=== PATIENT | female | born 1995 | race Caucasian/White ===

== ENCOUNTER 2020-09-12 11:10 | Outpatient (REF) | payer MEDICAID, SELFPAY ==
[2020-09-12 12:45] LABS: COVID-19 Test Negative (Negative)
== END 2020-09-12 11:11 | disposition home or self-care (01) ==
LOC: HO.LAB 11:10
PROVIDERS: Visit Provider Internal Medicine
DX: Z20.822 Contact with and (suspected) exposure to COVID-19 (principal)
CPT/HCPCS: 36415; 87635; C9803

== ENCOUNTER 2021-01-16 08:52 | Outpatient (REF) | payer MEDICAID, SELFPAY ==
[2021-01-16 09:29] LABS: COVID-19 Test Negative (Negative)
== END 2021-01-16 08:53 | disposition home or self-care (01) ==
LOC: HO.LAB 08:52
PROVIDERS: PCP Nurse Practitioner Primary Care; Visit Provider Internal Medicine
DX: Z20.822 Contact with and (suspected) exposure to COVID-19 (principal)
CPT/HCPCS: 36415; 87635; C9803

== ENCOUNTER 2021-04-22 10:28 | Outpatient (REF) | payer MEDICAID, SELFPAY | END 2021-04-22 10:29 | disposition home or self-care (01) | LOC: HO.LAB 10:28 | PROVIDERS: Visit Provider Internal Medicine | DX: Z20.822 Contact with and (suspected) exposure to COVID-19 (principal) | CPT/HCPCS: C9803; U0003; U0005 ==

== ENCOUNTER 2021-04-23 14:45 | Emergency (ER) | payer MEDICAID, SELFPAY ==
--- NOTE | ~2021-04-23 | XR_ITS ---
EXAMINATION: XR CHEST CLINICAL INFORMATION: Cough COMPARISON: Chest x-ray on 01/29/2018 TECHNIQUE: Frontal view of the chest was obtained. FINDINGS: No significant abnormality is noted involving the heart, lungs, mediastinum, bony thorax or soft tissues. XR/XR chest 1V IMPRESSION: Unremarkable examination.
[2021-04-23 16:20] VITALS: BP 119/65; PULSE 105; RESP 20; TEMP 37; O2SAT 95; BMI 31.1
[2021-04-23 17:08] LABS: COVID-19 Test Negative (Negative)
[2021-04-23] MEDS: predniSONE 20 MG TABLET 60 MG PO (18:53)
[2021-04-23 19:00] VITALS: PULSE 105; O2SAT 95
[2021-04-23] MEDS: Albuterol/Iprat 2.5/0.5MG 3 ML AMPUL.NEB INHALE (19:00)
--- NOTE | 2021-04-23 19:06 | ED_ITS ---
HPI - URI/Sore Throat General Chief Complaint: Upper Respiratory Symptoms Stated Complaint: diff breathing, cough, lung pain Time Seen by Provider: 04/23/21 18:31 Source: patient Mode of arrival: ambulatory Limitations: no limitations History of Present Illness HPI Narrative: 25-year-old patient history of asthma presents to ED for coughing, wheezing, chest tightness and body aches. Patient states having green phlegm and coughing. Patient states she was exposed to a family member 3 days ago was positive for COVID. Family member called her yesterday and told her that they had COVID. Patient denies any coughing up blood, leg swelling, calf pain, or shortness of breath on exertion. Related Data Previous Rx's Medication Instructions Recorded benzonatate 100 mg capsule 100 mg PO TID PRN 5 Days #15 cap 04/23/21 prednisone 20 mg tablet 40 mg PO DAILY 5 Days #10 tab 04/23/21 Allergies Allergy/AdvReac Type Severity Reaction Status Date / Time glatiramer (copolymer 1) Allergy Unknown anaphylaxis Verified 04/23/21 16:20 [Copaxone] No Known Allergies Allergy Verified 04/23/21 16:20 [No Known Allergies*] pollen Allergy Unknown snnezing Uncoded 12/20/19 00:00 Review of Systems Review of Systems: Yes all other systems are reviewed and are negative Constitutional: Constitutional: Reports as per HPI, Reports no additional constitutional complaints and Reports body ache(s) Eyes: Eyes: Reports as per HPI and Reports no additional eye complaints ENT: Reports system reviewed and no additional complaints, except as documented and Reports as per HPI Cardiovascular: Cardiovascular: Reports as per HPI, Reports no additional cardiovascular complaints and Denies chest pain Respiratory: Respiratory: Reports as per HPI, Reports no additional respiratory complaints, Reports cough, Reports excessive phlegm production (Green) and Reports wheezing Gastrointestinal: Gastrointestinal: Reports as per HPI and Reports no additional gastrointestinal complaints Genitourinary: Genitourinary: Reports no additional female genitourinary complaints and Reports as per HPI Musculoskeletal: Musculoskeletal: Reports no additional musculoskeletal complaints and Reports as per HPI Neurologic: Reports system reviewed and no additional complaints, except as documented and Reports as per HPI Psychiatric: Psychiatric: Reports no additional psychiatric complaints and Reports as per HPI Allergic/Immunologic: Allergic/Immunologic: Reports wheezing PMFSH Social History Social History Advance Directives: No Advance Directives Information Provided: Yes Patient : No Physical Exam Vital Signs: Vital Signs: Last Vital Signs Temp 98.6 F 04/23/21 16:20 Pulse 105 H 04/23/21 19:00 Resp 20 04/23/21 16:20 BP 119/65 04/23/21 16:20 Pulse Ox 95 04/23/21 16:20 Body Mass Index 31.1 Const: General: cooperative, healthy appearing, comfortable, no acute distress, well developed, alert, awake and Physically active Orientation/consciousness: patient oriented x3 HENMT: Head: Yes normal to inspection, Yes No palpable skull fracture present, Yes normocephalic, Yes atraumatic, Yes abrasion, No Acrocyanosis present, No raccoon eyes and No scalp lesion Ears: hearing grossly normal bilaterally and external ears normal General nose exam: Normal external nose present and Normal nares present Face and sinus: Yes normal facial exam and Yes sinuses nontender Throat: Yes posterior oropharynx normal, Yes tonsils normal and Yes uvula midline Eyes: General: appearance normal, both eyes and all related structures Neck: Neck: Yes normal visual inspection, Yes full ROM, Yes no lymphadenopathy, Yes no meningeal signs, Yes trachea midline, Yes supple, No anterior neck swelling and No tender Chest: Chest palpation & inspection: normal inspection of the chest and normal palpation of entire chest wall Resp: Effort & Inspection: normal respiratory effort and able to speak in complete sentences Auscultation: wheezes (Diffuse) expiratory wheezes Cardio: Jugular venous distension: no JVD Heart sounds: S1 normal heart sound present and S2 normal heart sound present GI: Inspection: Yes normal to inspection and No abdominal wall ecchymosis Palpation (GI): Soft to palpation, not firm, nontender, no guarding and not rigid : General: Yes CVA tenderness and Yes no CVA tenderness Back/Spine/Pelvis: Back: no CVA tenderness, CVA tenderness and No back tenderness Skin: General skin exam: no rashes or lesions noted and elasticity normal Neuro: General: patient oriented x3, gait normal, no meningeal signs and CN's II-XI intact bilaterally Cranial nerves: Yes CN's II-XII intact bilaterally Extrem: Other: Bilateral Lower extremity negative for swelling, pitting edema, or calf tenderness. General: Yes normal to inspection and Yes full ROM Psych: Appearance: grossly normal, well kempt and not disheveled Course Course Course Narrative: COVID x-ray ordered. Reevaluation(s) Reevaluation #1: COVID swab x-ray negative. Patient informed although COVID swab was negative this may be a false negative due to her recently been exposed. Patient given albuterol treatments steroids and feels better. Lung sounds clear. Time: 19:13 MDM - URI/Sore Throat MDM Narrative Medical decision making narrative: URI. Asthma exacerbation Lab Data Labs: Lab Results 04/23/21 Range/Units 16:46 COVID-19 (CONI) Negative (Negative) COVID-19 Clin Com See Note Discharge Plan Discharge Clinical Impression: Upper respiratory infection, Asthma Patient Disposition: Home, Self-Care Instructions: Asthma (ED), Upper Respiratory Infection (ED) Additional Instructions: COVID swab and chest x-ray came back normal. Although your COVID soft came back negative, this may be a false negative due to you being recently exposed to COVID and now having symptoms. Will recommend retesting for COVID in 72 hours if symptoms does not improve. Will be given days off from work. Continue taking your albuterol inhaler as needed. He will be discharged on steroids and coughing medication. Return to ED immediately for shortness of breath, coughing up blood, calf pain, swelling of lower extremities, weakness, fever, chills, chest pain, or any other concerning symptoms. Please follow-up with primary care provider Prescriptions: New prednisone 20 mg tablet 40 mg PO DAILY 5 Days Qty: 10 RF: 0 benzonatate 100 mg capsule 100 mg PO TID PRN (Reason: cough) 5 Days Qty: 15 RF: 0 Stand Alone Forms: Work/School Release Interventions: ED Discharge Assessment Last Done: 04/23/21 19:32 Discharge Date/Time: 04/23/21 19:34 Print Language: Indonesian
== END 2021-04-23 19:34 | disposition home or self-care (01) ==
PROVIDERS: Emergency Provider Emergency Medicine; PCP Nurse Practitioner Primary Care
DX: J06.9 Acute upper respiratory infection, unspecified (principal); J45.909 Unspecified asthma, uncomplicated; Z20.822 Contact with and (suspected) exposure to COVID-19
CPT/HCPCS: 36415; 71045; 87635; 94640; 99283; 99284

== ENCOUNTER 2021-06-28 15:20 | Emergency (ER) | payer MEDICAID, SELFPAY ==
[2021-06-28 15:25] VITALS: BP 135/56; PULSE 77; RESP 18; TEMP 37.2; O2SAT 96; BMI 28.1
--- NOTE | 2021-06-28 16:04 | ED.FALL ---
HPI - Fall General Chief Complaint: Fall Stated Complaint: fell downstairs Time Seen by Provider: 06/28/21 15:45 History of Present Illness HPI Narrative: Patient complains of pain on her right ribs and her right hip and right upper leg when she went to go down 4 steps outside her building and slipped on the ice and slid down the stairs, no loss of consciousness no neck pain no numbness weakness or tingling no dazed no confused Related Data Previous Rx's Medication Instructions Recorded benzonatate 100 mg capsule 100 mg PO TID PRN 5 Days #15 cap 04/23/21 prednisone 20 mg tablet 40 mg PO DAILY 5 Days #10 tab 04/23/21 ibuprofen 600 mg tablet 600 mg PO Q6H PRN #20 tab 06/28/21 Allergies Allergy/AdvReac Type Severity Reaction Status Date / Time glatiramer (copolymer 1) Allergy Unknown anaphylaxis Verified 04/23/21 16:20 [Copaxone] No Known Allergies Allergy Verified 04/23/21 16:20 [No Known Allergies*] pollen Allergy Unknown snnezing Uncoded 12/20/19 00:00 Review of Systems Review of Systems: Positive for right rib right leg right hip pain after a fall Negatives are no headache no head injury no vision changes no fainting no feeling faint no numbness weakness or tingling no neck pain no shortness of breath no abdominal pain no other extremity pains Yes all other systems are reviewed and are negative [facility] Past Medical History Source: nursing notes reviewed Medical History (Updated 06/29/21 @ 00:02 by Background Dashannan) Multiple sclerosis Social History Social History Advance Directives: No Advance Directives Information Provided: No Patient : No Physical Exam Vital Signs: Vital Signs: Last Vital Signs Temp 98.9 F 06/28/21 15:25 Pulse 77 06/28/21 15:25 Resp 18 06/28/21 15:25 BP 135/56 L 06/28/21 15:25 Pulse Ox 96 06/28/21 15:25 BMI result Body Mass Index 28.1 General appearance no acute distress Head is normocephalic atraumatic Neck is supple and nontender Chest wall had right rib posterior and lateral tenderness, chest was clear to auscultation bilateral no respiratory distress, no ecchymosis on the chest wall Abdomen soft nontender The back there was right lower soft tissue tenderness as well as right mid back tenderness as well as posterior rib tenderness, no CVA tenderness no focal bony spinal tenderness Extremities are full range of motion x4 with equal range in both hips both knees both ankles and she ambulates with no limp Neuro no focal motor or sensory deficit Course Course Course Narrative: Right rib x-ray and chest x-ray did not reveal any pneumothorax or any obvious rib fractures or other bony injuries Physical exam showed no evidence of any fractures in any extremities or in the spine, patient ambulates easily and was discharged Discharge Plan Discharge Clinical Impression: Back strain, Multiple contusions Patient Disposition: Home, Self-Care Additional Instructions: There is no sign of any dangerous or serious injury now, no sign of any broken bones Use Tylenol or Motrin as needed Return to the ER any time any worse condition or any concerns Follow with primary doctor as needed Prescriptions: New ibuprofen 600 mg tablet 600 mg PO Q6H PRN (Reason: pain) Qty: 20 0RF No Action prednisone 20 mg tablet 40 mg PO DAILY 5 Days Qty: 10 0RF benzonatate 100 mg capsule 100 mg PO TID PRN (Reason: cough) 5 Days Qty: 15 0RF Stand Alone Forms: Work/School Release Interventions: ED Discharge Assessment Last Done: 06/28/21 16:14 Discharge Date/Time: 06/28/21 16:15
== END 2021-06-28 16:15 | disposition home or self-care (01) ==
PROVIDERS: Emergency Provider Emergency Medicine; PCP Nurse Practitioner Primary Care
DX: S39.012A Strain of muscle, fascia and tendon of lower back, initial encounter (principal); T14.8XXA Other injury of unspecified body region, initial encounter; W00.1XXA Fall from stairs and steps due to ice and snow, initial encounter; Y93.89 Activity, other specified; Y92.038 Other place in apartment as the place of occurrence of the external cause; Y99.9 Unspecified external cause status
CPT/HCPCS: 99283

== ENCOUNTER 2021-07-18 11:07 | Outpatient (REF) | payer MEDICAID, SELFPAY ==
--- NOTE | ~2021-07-18 | XR_ITS ---
EXAMINATION: XR CHEST CLINICAL INFORMATION: Abnormal weight loss COMPARISON: April 23, 2021 and January 29, 2018 TECHNIQUE: 2 views of the chest were obtained. FINDINGS: No significant abnormality is noted involving the heart, lungs, mediastinum, bony thorax or soft tissues. XR/XR chest 2V IMPRESSION: No acute disease.
== END 2021-07-18 11:08 | disposition home or self-care (01) ==
LOC: HO.XRAY 11:07
PROVIDERS: Absent Provider Nurse Practitioner Family; PCP Nurse Practitioner Primary Care; Visit Provider Advanced Practice Midwife
DX: R61 Generalized hyperhidrosis (principal); R63.4 Abnormal weight loss; G35 Multiple sclerosis; J30.1 Allergic rhinitis due to pollen; F12.90 Cannabis use, unspecified, uncomplicated; F31.9 Bipolar disorder, unspecified; F41.9 Anxiety disorder, unspecified; Z88.8 Allergy status to other drugs, medicaments and biological substances; Z30.431 Encounter for routine checking of intrauterine contraceptive device
CPT/HCPCS: 71046

== ENCOUNTER 2021-08-23 13:15 | Emergency (ER) | payer MEDICAID, SELFPAY ==
[2021-08-23 13:51] VITALS: BP 109/48; PULSE 78; RESP 18; TEMP 37; O2SAT 98; BMI 26.2
[2021-08-23 18:13] LABS: Appearance Urine CLOUDY; Color Urine YELLOW; Glucose Urine UA NEG (NEG); Leukocyte Esterase Urine NEG (NEG); Nitrite Urine NEG (NEG); UACC Culture Trigger NO; Urine Blood NEG (NEG); Urine Ketones NEG (NEG); Urine Protein 1+ MG/DL (NEG-TRACE)
[2021-08-23 18:15] LABS: UPreg QC Valid YES; Urine Pregnancy NEGATIVE (NEGATIVE)
[2021-08-23 18:37] LABS: Amorphous Sediment Urine 4+ /LPF; RBC Urine 0 /HPF (0); Renal Epithelial Cells Urine 1+ /LPF; Squamous Epithelial Cell Urine 3+ /LPF; WBC Urine 0 /HPF (0-4)
--- NOTE | 2021-08-23 19:55 | ED_ITS ---
HPI - Female Genitourinary General Chief complaint: Urogenital-Female Stated complaint: IUD issues Time Seen by Provider: 08/23/21 17:10 Source: patient Mode of arrival: ambulatory Limitations: no limitations History of Present Illness HPI Narrative: Patient is a 25 year old female presenting to the emergency department today requesting to have her IUD removed. Patient states that her IUD was set to be removed in 2019 and she has not been able to establish with an OBGYN so she came here, to have it removed. Patient denies any dizziness, lightheadedness, abdominal pain, nausea, vomiting, fever, chills, blurry vision, double vision, loss of vision, chest pain, difficulty breathing, shortness of breath, back pain, night sweats, pain with urination, increased urinary frequency, increased urinary urgency, blood in her urine or stool, syncope or a near syncopal episode, recent trauma or falls, bowel incontinence, bladder incontinence, bowel retention, bladder retention, or any other complaints at this time. Related Data Previous Rx's Medication Instructions Recorded benzonatate 100 mg capsule 100 mg PO TID PRN 5 Days #15 cap 04/23/21 prednisone 20 mg tablet 40 mg PO DAILY 5 Days #10 tab 04/23/21 ibuprofen 600 mg tablet 600 mg PO Q6H PRN #20 tab 06/28/21 vitamin with calcium 1 tab PO DAILY #30 tab 07/18/21 no.72-iron 27 mg-folic acid 1 mg tablet ( Vitamins Plus Low Iron) Allergies Allergy/AdvReac Type Severity Reaction Status Date / Time glatiramer (copolymer 1) Allergy Unknown anaphylaxis Verified 08/23/21 13:51 [Copaxone] No Known Allergies Allergy Verified 08/23/21 13:51 [No Known Allergies*] pollen Allergy Unknown snnezing Uncoded 12/20/19 00:00 Review of Systems Constitutional: Constitutional: Reports no additional constitutional complaints, Denies chills, Denies fever(s) and Denies night sweats Eyes: Eyes: Reports no additional eye complaints, Denies blurry vision, Denies change in vision, Denies diplopia, Denies eye discharge, Denies loss of vision and Denies eye pain ENT: Denies dizziness Cardiovascular: Cardiovascular: Reports no additional cardiovascular complaints, Denies chest pain, Denies lightheadedness, Denies Loss of Consciousness and Denies dyspnea Respiratory: Respiratory: Reports no additional respiratory complaints and Denies dyspnea Gastrointestinal: Gastrointestinal: Reports no additional gastrointestinal complaints, Denies abdominal pain, Denies melena, Denies hematochezia, Denies change in bowel habits and Denies change in stool character Genitourinary: Genitourinary: Denies hematuria, Denies urinary frequency, Denies dysuria, Denies urinary incontinence, Denies urinary hesitancy and Denies urinary urgency Musculoskeletal: Musculoskeletal: Reports no additional musculoskeletal complaints, Denies numbness and Denies tingling Neurologic: Denies dizziness, Denies loss of vision, Denies numbness and Denies tingling Psychiatric: Psychiatric: Reports no additional psychiatric complaints Endocrine: Endocrine: Reports no additional endocrine complaints Hematologic/Lymphatic: Hematologic/Lymphatic: Reports no additional hematologic/lymphatic complaints Allergic/Immunologic: Allergic/Immunologic: Reports no additional allergic/immunologic complaints PMFSH Past Medical History Attestation statement: The following information was validated with the patient. Source: old records reviewed Medical History Asthma H/O bipolar disorder History of anxiety Multiple sclerosis Family History Family History Maternal Uncle Pancreatic cancer Social History Social History Alcohol intake: never Patient Tobacco Use Status: Never used Tobacco Substance Use Type: Marijuana Advance Directives: No Advance Directives Information Provided: Yes Sexual orientation: Straight/Heterosexual Gender identity: Female Physical Exam Vital Signs: Vital Signs: Last Vital Signs Temp 98.6 F 08/23/21 13:51 Pulse 78 08/23/21 13:51 Resp 18 08/23/21 13:51 BP 109/48 L 08/23/21 13:51 Pulse Ox 98 08/23/21 13:51 BMI result Body Mass Index 26.2 Const: General: cooperative, no acute distress, alert and awake Nutritional Appearance: well nourished Orientation/consciousness: patient oriented x3 Limitations: no limitations HEENT: Head: Yes normal to inspection and Yes atraumatic Ears: hearing grossly normal bilaterally and external ears normal General nose exam: Normal external nose present, no nasal discharge noted and no epistaxis Face and sinus: Yes normal facial exam, No abrasion and No laceration Mouth: Normal oral and palatal mucosa present, no drooling and no muffled voice Eyes: General: appearance normal, both eyes and all related structures Periorbital: periorbital findings normal Eyelids: Yes eyelids normal Conjunctivae: conjunctivae normal Pupils: Equal, round and reactive pupils present EOM: EOMs intact bilaterally Neck: Neck: Yes normal visual inspection, Yes full ROM and Yes no lymphadenopathy Chest: Chest palpation & inspection: normal inspection of the chest Resp: Effort & Inspection: normal respiratory effort and able to speak in complete sentences Auscultation: clear to auscultation bilaterally Cardio: Rate: regular rate Rhythm: regular rhythm GI: Inspection: Yes normal to inspection Neuro: General: patient oriented x3 and moves all extremities Cranial nerves: Yes Equal, round and reactive pupils present Cognition (Neuro): normal cognition Motor exam (neuro): 5/5 motor strength present throughout Sensory Exam: Normal double simultaneous stimulation for sensation Coordination: [id number] test normal Extrem: General: Yes normal to inspection, Yes full ROM and Yes capillary refill normal Psych: Appearance: grossly normal Mental Status: mental status grossly normal Affect: normal affect Attitude: cooperative Thought process: Normal thought process present Thought content: Normal thought content pr esent Insight: Good insight present (Psych) MDM - Female Genitourinary MDM Narrative Medical decision making narrative: Patient is a 25 year old female presenting to the emergency department today requesting to get her IUD removed. Patient's physical exam was unremarkable. Patient's test was negative. I explained my physical exam findings as well as all test results to the patient. I answered all questions asked by the patient. I explained to the patient that we do not perform routine IUD removal in the Emergency Department and that she needs to follow up with an OBGYN for an appropriate removal and subsequent follow up. I stressed the importance of the patient taking her medication as prescribed. I stressed the importance of the patient following up with her primary care provider. I stressed the importance of the patient returning to the emergency department immediately if her symptoms were to worsen or if she were to develop any dizziness, shortness of breath, difficulty breathing, chest pain, blurry vision, loss of vision, nausea, vomiting, abdominal pain, fever, chills, back pain, or any other complaints. Patient verbalized agreement and understanding with this treatment plan and discharge. Differential Diagnosis Differential diagnosis: Unlikely dysmenorrhea (IUD removal) Medical Records Attestation: I reviewed the patient's medical records. Lab Data Attestation: I reviewed the patient's lab results. Labs: Lab Results 08/23/21 08/23/21 Range/Units 18:02 18:02 Urine Color YELLOW Urine Appearance CLOUDY Urine pH 7.0 (5.0-8.0) Ur Specific [place] 1.010 (1.005-1.025) Urine Protein 1+ H (NEG-TRACE) MG/DL Urine Glucose (UA) NEG (NEG) MG/DL Urine Ketones NEG (NEG) MG/DL Urine Blood NEG (NEG) Urine Nitrite NEG (NEG) Ur Leukocyte Esterase NEG (NEG) Urine RBC 0 (0) /HPF Urine WBC 0 (0-4) /HPF Ur Squamous Epith Cells 3+ /LPF Ur Renal Epithelial Cell 1+ /LPF Amorphous Sediment 4+ /LPF Urine Bacteria NONE /LPF Urine Test NEGATIVE (NEGATIVE) Discharge Plan Discharge Clinical Impression: IUD (intrauterine device) in place Patient Disposition: Home, Self-Care Additional Instructions: Follow up with OB as directed. Follow up with your primary care provider. Return to the emergency department immediately if your symptoms worsen or if you develop any dizziness, shortness of breath, difficulty breathing, chest pain, blurry vision, loss of vision, nausea, vomiting, abdominal pain, fever, chills, back pain, or any other complaints. Prescriptions: No Action prednisone 20 mg tablet 40 mg PO DAILY 5 Days Qty: 10 0RF benzonatate 100 mg capsule 100 mg PO TID PRN (Reason: cough) 5 Days Qty: 15 0RF ibuprofen 600 mg tablet 600 mg PO Q6H PRN (Reason: pain) Qty: 20 0RF Vitamin Plus Low Iron 27 mg iron- 1 mg tablet 1 tab PO DAILY Qty: 30 11RF Referrals: Saloni Rodríguez NP [Primary Care Provider] - 2 days Brandyn Molina MD [Physician] - 2 days Stand Alone Forms: Work/School Release Interventions: ED Discharge Assessment Last Done: 08/23/21 20:06 Discharge Date/Time: 08/23/21 20:08 Print Language: Albanian
--- NOTE | 2021-08-23 20:06 | PC.NURSE ---
I assumed nursing care of this pt at 1900. I first met her at time of DC, at this time. She was tearful, states she continues to have pain, but denies having any questions or further concerns. She verbalized an understanding of all DC orders and she ambulated out of the ED independently and with steady gait.
== END 2021-08-23 20:08 | disposition home or self-care (01) ==
PROVIDERS: Emergency Provider Emergency Medicine Emergency Medical Services; PCP Nurse Practitioner Primary Care
DX: Z30.432 Encounter for removal of intrauterine contraceptive device (principal); G35 Multiple sclerosis; F12.90 Cannabis use, unspecified, uncomplicated
CPT/HCPCS: 81001; 81025; 99282

== ENCOUNTER → 2021-09-17 13:00 | Outpatient (BNVA) | payer MEDICAID, SELFPAY | PROVIDERS: PCP Nurse Practitioner Primary Care; Visit Provider Obstetrics & Gynecology | DX: Z30.432 Encounter for removal of intrauterine contraceptive device (principal) | CPT/HCPCS: 58301; 81025 ==

== ENCOUNTER 2021-09-25 11:18 | Outpatient (REF) | payer MEDICAID, SELFPAY ==
[2021-09-25 12:10] LABS: COVID-19 Test Negative (Negative)
== END 2021-09-25 11:19 | disposition home or self-care (01) ==
LOC: HO.LAB 11:18
PROVIDERS: Visit Provider Internal Medicine
DX: Z20.822 Contact with and (suspected) exposure to COVID-19 (principal)
CPT/HCPCS: 87635; C9803

== ENCOUNTER 2021-10-11 11:45 | Outpatient (REF) | payer MEDICAID, SELFPAY ==
[2021-10-11 12:12] LABS: COVID-19 Test Positive (Negative); IDNOW Serial# 16C4AD1C
== END 2021-10-11 11:46 | disposition home or self-care (01) ==
LOC: HO.LAB 11:45
PROVIDERS: Visit Provider Internal Medicine
DX: Z20.822 Contact with and (suspected) exposure to COVID-19 (principal)
CPT/HCPCS: 87635; C9803

== ENCOUNTER → 2022-09-18 11:43 | Outpatient (BNVA) | payer MEDICAID, SELFPAY | PROVIDERS: PCP Nurse Practitioner Primary Care; Visit Provider Obstetrics & Gynecology | DX: Z30.09 Encounter for other general counseling and advice on contraception (principal) | CPT/HCPCS: 99212 ==

== ENCOUNTER 2022-10-01 11:14 | Outpatient (REF) | payer MEDICAID, SELFPAY ==
[2022-10-01 15:51] LABS: CT PCR NOT DETECTED (Not Detect.); NG PCR NOT DETECTED (Not Detect.)
== END 2022-10-01 11:15 | disposition home or self-care (01) ==
LOC: HO.LNP 11:14
PROVIDERS: PCP Nurse Practitioner Primary Care; Visit Provider Obstetrics & Gynecology
DX: Z30.430 Encounter for insertion of intrauterine contraceptive device (principal)
CPT/HCPCS: 0353U; 58300; 81025; J7298

== ENCOUNTER 2022-12-03 14:32 | Outpatient (AMB) | payer MEDICAID, SELFPAY ==
--- NOTE | 2022-12-03 14:34 | MHC.OFFVIS ---
Intake Vital Signs 12/03/22 14:35 Height 5 ft 1 in Weight 166 lb BMI 31.4 BP 116/68 Intake Visit Reasons: iud check Senior Architect/Design Manager: Senior Architect/Design Manager Present (Anabel) Allergies glatiramer (copolymer 1) [Copaxone] Allergy (Unknown, Verified 12/03/22 14:34) anaphylaxis No Known Allergies [No Known Allergies*] Allergy (Verified 12/03/22 14:34) pollen Allergy (Unknown, Uncoded 10/01/22 11:23) snnezing HPI HPI Comments History of Present Illness Details The patient is presenting for IUD check after 1 st period following IUD insertion. [facility] Medical History Asthma H/O bipolar disorder History of anxiety Multiple sclerosis Family History Maternal Uncle Pancreatic cancer Social History Alcohol intake: never Patient Tobacco Use Status: Never used Tobacco Substance Use Type: Marijuana Sexual orientation: Straight/Heterosexual Gender identity: Female Female Reproductive History Menstrual Age of Menarche: 10 control method: progestin IUCD (Mirena 10/01/22) Total pregnancies: 2 Full term: 2 Number of Living Children: 2 Review of Systems Const All systems reviewed & are unremarkable except as noted in HPI and below Reports as per HPI and Reports no additional complaints GI Reports no additional complaints Reports no additional complaints Physical Exam Vital Signs: Last Vital Signs BP 116/68 12/03/22 14:35 BMI result Body Mass Index 31.4 General: Yes no CVA tenderness External Female Exam: normal external appearance and normal appearance of the urethra Speculum Exam - Vagina: normal appearance of the vagina, normal palpation, no lesions and no masses Speculum Exam - Cervix: normal appearance of the cervix, normal palpation, no lesions, no masses, nontender and Other cervical findings present (IUD thread in place) Bimanual exam- vagina & uterus: normal bimanual exam, normal palpation, uterine size normal, normal palpation, uterine shape normal, No Cervical tenderness present and non-tender Bimanual Exam- Adnexa, other: normal adnexae Back/Spine/Pelvis Back: no CVA tenderness Results AMB Test Urine AMB Test Urine Negative Last Edit by SANA Casillas on 12/03/22 14:43 Results Reviewed Results Reviewed: Laboratory Last Values Tst Clinic Negative 12/03/22 14:42 Assessment & Plan Assessment & Plan (1) IUD check up: Code(s): Z30.431 - Encounter for routine checking of intrauterine contraceptive device Plan: UPT done in the office was negative. Discussed with the patient the finding on physical exam, IUD string in place, the patient was reassured. Instructions given to patient to call in case of temperature above 100.4, severe cramping/pelvic pain, abnormal discharge or abnormal uterine bleeding or if she misses her. Otherwise follow-up at her annual exam appointment. All questions answered, the patient verbalized understanding. Orders: Orders AMB HCG Urine Test Today Z32.02 - Encounter for test, result negative Coding Level of Care Code Est Pt Level 3 (93130) Diagnoses IUD check up Z30.431
[2022-12-03 14:35] VITALS: BP 116/68; BMI 31.4
== END 2022-12-03 15:12 | disposition home or self-care (01) ==
LOC: HO.HWS 14:32
PROVIDERS: PCP Nurse Practitioner Primary Care; Visit Provider Obstetrics & Gynecology
DX: Z30.431 Encounter for routine checking of intrauterine contraceptive device (principal); Z32.02 Encounter for pregnancy test, result negative
CPT/HCPCS: 99213

== ENCOUNTER → 2022-12-03 14:32 | Outpatient (BNVA) | payer MEDICAID, SELFPAY | PROVIDERS: PCP Nurse Practitioner Primary Care; Visit Provider Obstetrics & Gynecology | DX: Z30.431 Encounter for routine checking of intrauterine contraceptive device (principal) | CPT/HCPCS: 81025; 99212 ==

== ENCOUNTER 2023-07-27 12:29 | Outpatient (REF) | payer MEDICAID, SELFPAY ==
[2023-07-27 18:40] LABS: CT PCR NOT DETECTED (Not Detect.); NG PCR NOT DETECTED (Not Detect.)
== END 2023-07-27 12:30 | disposition home or self-care (01) ==
LOC: HO.LNP 12:29
PROVIDERS: PCP Nurse Practitioner Primary Care; Visit Provider Obstetrics & Gynecology
DX: N93.9 Abnormal uterine and vaginal bleeding, unspecified (principal); Z11.3 Encounter for screening for infections with a predominantly sexual mode of transmission; Z97.5 Presence of (intrauterine) contraceptive device
CPT/HCPCS: 0353U; 81025; 99212

== ENCOUNTER 2023-07-27 12:29 | Outpatient (AMB) | payer MEDICAID, SELFPAY ==
[2023-07-27 13:06] VITALS: BP 100/62; BMI 31.4
--- NOTE | 2023-07-27 13:06 | MHC.OFFVIS ---
Intake Vital Signs 07/27/23 13:06 Height 5 ft 1 in Weight 166 lb BMI 31.4 BP 100/62 Intake Visit Reasons: Bleeding with IUD Web Page Designer Required: No Information Interpreted: non-clinical & clinical Shelter Monitor: Shelter Monitor Present Accompanied by: Self / Same As Patient Allergies glatiramer (copolymer 1) [Copaxone] Allergy (Unknown, Verified 07/27/23 13:07) anaphylaxis No Known Allergies [No Known Allergies*] Allergy (Verified 07/27/23 13:07) pollen Allergy (Unknown, Uncoded 10/01/22 11:23) snnezing Is last menstrual period known: Yes Last menstrual period: 06/15/23 Post menopausal: No HPI HPI Comments History of Present Illness Details Presenting complaining of spotting for 3 weeks with Mirena IUD 2 months ago since then no more bleeding. No other associated symptoms PFSH Medical History Asthma H/O bipolar disorder History of anxiety Multiple sclerosis Family History Maternal Uncle Pancreatic cancer Social History Alcohol intake: never Patient Tobacco Use Status: Never used Tobacco Substance Use Type: Marijuana Sexual orientation: Straight/Heterosexual Gender identity: Female Female Reproductive History Menstrual Age of Menarche: 10 Date of last menstrual period: 06/15/23 Review of Systems Const All systems reviewed & are unremarkable except as noted in HPI and below Physical Exam Vital Signs: Last Vital Signs BP 100/62 07/27/23 13:06 BMI result Body Mass Index 31.4 General: Yes no CVA tenderness External Female Exam: normal external appearance and normal appearance of the urethra Speculum Exam - Vagina: normal appearance of the vagina, normal palpation, no lesions and no masses Speculum Exam - Cervix: normal appearance of the cervix, normal palpation, no lesions, no masses, nontender and Other cervical findings present (IUD string in place) Bimanual exam- vagina & uterus: normal bimanual exam, normal palpation, uterine size normal, normal palpation, uterine shape normal, No Cervical tenderness present and non-tender Bimanual Exam- Adnexa, other: normal adnexae Back/Spine/Pelvis Back: no CVA tenderness Results AMB Test Urine AMB Test Urine Negative Last Edit by Shruthi Boucher MA on 07/27/23 13:18 Results Reviewed Results Reviewed: Laboratory Last Values [facility]st Clinic Negative 07/27/23 13:17 Assessment & Plan Assessment & Plan (1) Abnormal uterine bleeding (AUB): Comment: On Mirena IUD Code(s): N93.9 - Abnormal uterine and vaginal bleeding, unspecified Plan: Urine test done in the office was negative. GC/CT was negative. Pelvic ultrasound ordered. Instructions given the patient to schedule an ultrasound follow-up appointment Orders: Orders AMB HCG Urine Test Today Z32.02 - Encounter for test, result negative Coding Level of Care Code Est Pt Level 3 (16323) Diagnoses Abnormal uterine bleeding (AUB) N93.9
== END 2023-07-27 13:30 | disposition home or self-care (01) ==
LOC: HO.HWS 12:29
PROVIDERS: PCP Nurse Practitioner Primary Care; Visit Provider Obstetrics & Gynecology
DX: N93.9 Abnormal uterine and vaginal bleeding, unspecified (principal); Z32.02 Encounter for pregnancy test, result negative
CPT/HCPCS: 99213

== ENCOUNTER 2023-08-05 12:36 | Outpatient (REF) | payer MEDICAID, SELFPAY ==
--- NOTE | ~2023-08-05 | US_ITS ---
EXAMINATION: US PELVIS CLINICAL INFORMATION: Abnormal uterine bleeding. Left pelvic pain. COMPARISON: None available. TECHNIQUE: Ultrasound of the pelvis is performed using both transabdominal and transvaginal transducers along with Doppler. Transvaginal imaging is performed due to inadequate visualization transabdominally. FINDINGS: Uterus: The uterus is anteverted and measures 9.5 x 4.5 x 5.9 cm. The uterus appears normal. There are dilated parametrial vessels which may relate to ovarian vein reflux. The double wall endometrial thickness is 0.2 mm. An IUD appears appropriately positioned. The uterus is smooth in contour and has normal myometrial echogenicity. No visible fibroid. Adnexa: Both ovaries are visualized. There is normal color flow to the adnexa. There is no ovarian torsion. There is no pelvic ascites or fluid collection. Right ovary measures 3.5 x 1.3 x 1.7 cm. The right ovary appears normal. Left ovary measures 3.9 x 2.4 x 2.8 cm. The left ovary appears normal. US/US pelvic and transvaginal IMPRESSION: IUD in place. No discrete endometrial abnormality seen. Dilated parametrial vessels may relate to ovarian vein reflux. Recommend clinical correlation for pelvic congestion syndrome.
== END 2023-08-05 12:37 | disposition home or self-care (01) ==
LOC: HO.US 12:36
PROVIDERS: PCP Nurse Practitioner Primary Care; Visit Provider Obstetrics & Gynecology
DX: N93.9 Abnormal uterine and vaginal bleeding, unspecified (principal)
CPT/HCPCS: 76830; 76856

== ENCOUNTER 2023-09-02 11:27 | Outpatient (AMB) | payer MEDICAID, SELFPAY ==
--- NOTE | 2023-09-02 12:05 | MHC.OFFVIS ---
Intake Vital Signs 09/02/23 12:06 Height 5 ft 1 in Weight 166 lb BMI 31.4 BP 100/68 Intake Visit Reasons: Ultra sound follow up Corporate Administrative Assistant Required: No Allergies glatiramer (copolymer 1) [Copaxone] Allergy (Unknown, Verified 09/02/23 12:06) anaphylaxis No Known Allergies [No Known Allergies*] Allergy (Verified 09/02/23 12:06) pollen Allergy (Unknown, Uncoded 09/02/23 12:06) snnezing Is last menstrual period known: Yes Last menstrual period: 08/24/23 Post menopausal: No HPI HPI Comments History of Present Illness Details Presenting for ultrasound follow-up. GC/CT was negative, urine dip and test done in the office last visit were negative Pelvic ultrasound showed the following: Uterus: The uterus is anteverted and measures 9.5 x 4.5 x 5.9 cm. The uterus appears normal. There are dilated parametrial vessels which may relate to ovarian vein reflux. The double wall endometrial thickness is 0.2 mm. An IUD appears appropriately positioned. The uterus is smooth in contour and has normal myometrial echogenicity. No visible fibroid. Adnexa: Both ovaries are visualized. There is normal color flow to the adnexa. There is no ovarian torsion. There is no pelvic ascites or fluid collection. Right ovary measures 3.5 x 1.3 x 1.7 cm. The right ovary appears normal.The patient is doing well Left ovary measures 3.9 x 2.4 x 2.8 cm. The left ovary appears normal. The patient is doing well with no complaints no abnormal uterine bleeding pelvic pain PFSH Medical History Asthma H/O bipolar disorder History of anxiety Multiple sclerosis Family History Maternal Uncle Pancreatic cancer Social History Alcohol intake: never Patient Tobacco Use Status: Never used Tobacco Substance Use Type: Marijuana Sexual orientation: Straight/Heterosexual Gender identity: Female Female Reproductive History Menstrual Age of Menarche: 10 Date of last menstrual period: 08/24/23 control method: progestin IUCD Review of Systems Const All systems reviewed & are unremarkable except as noted in HPI and below Reports as per HPI and Reports no additional complaints GI Reports no additional complaints Reports no additional complaints Physical Exam Vital Signs: Last Vital Signs BP 100/68 09/02/23 12:06 BMI result Body Mass Index 31.4 Assessment & Plan Assessment & Plan (1) Abnormal uterine bleeding (AUB): Comment: On Mirena IUD Code(s): N93.9 - Abnormal uterine and vaginal bleeding, unspecified Plan: Discussed with the patient the results the ultrasound, IUD in place, dilated pelvic vessels. No history of pelvic pain. Instructions given the patient to call in case of pelvic pain occurs, abnormal uterine bleeding recurs. All questions answered, the patient verbalized understanding. Coding Level of Care Code Est Pt Level 3 (13369) Diagnoses Abnormal uterine bleeding (AUB) N93.9
[2023-09-02 12:06] VITALS: BP 100/68; BMI 31.4
== END 2023-09-02 12:30 | disposition home or self-care (01) ==
PROVIDERS: PCP Nurse Practitioner Primary Care; Referring Provider Nurse Practitioner Primary Care; Visit Provider Obstetrics & Gynecology
DX: N93.9 Abnormal uterine and vaginal bleeding, unspecified (principal)
CPT/HCPCS: 99213

== ENCOUNTER → 2023-09-02 11:27 | Outpatient (BNVA) | payer MEDICAID, SELFPAY | PROVIDERS: PCP Nurse Practitioner Primary Care; Visit Provider Obstetrics & Gynecology | DX: N93.9 Abnormal uterine and vaginal bleeding, unspecified (principal) | CPT/HCPCS: 99212 ==

== ENCOUNTER 2024-07-01 13:43 | Outpatient (REF) | payer MEDICAID, SELFPAY ==
--- OUTSIDE RECORDS SUMMARY | 2024-07-01 14:31 | XMS_ITS | Clinical Summary ---
Author Organization [employer] Address [address] [facility] [address] [place] [address] Care Team Providers Care Gardening Manager Name Role Phone Saloni Rodríguez ZE Primary Care Provider [phone] Allergies Active Allergy Reactions Criticality Noted Date Comments Glatiramer Acetate Unknown 02/20/2023 Dust Mite Extract 12/08/2022 Other reaction(s): nasal congestion Medications * This document contains information received from the source organization and may not represent a complete record from that organization. 27-1 MG tablet Take 1 tablet by mouth in the morning. 3 Active albuterol 108 (90 Base) MCG/ACT inhalerIndicatio ns:Mild intermittent reactive airway disease without complication Inhale 2 puffs every 6 (six) hours if needed for wheezing. 18 g 2 3 Active Saccharomyces boulardii (probiotic) 250 MG capsule Take 1 capsule (250 mg) by mouth Once per day. 30 capsule 3 4 025 Active Additional Information Patient not taking.Reported on 03/10/2024 polycarbophil (FiberCon) 625 MG tablet Take 1 tablet (625 mg) by mouth 2 times daily. 60 tablet 3 4 025 Active Additional Information Patient not taking.Reported on 03/10/2024 Levonorgestrel (Mirena, 52 MG,) 20 MCG/DAY intrauterine device by Intrauterine route. Active naproxen (Naprosyn) 500 MG tablet TAKE 1 TABLET BY MOUTH TWICE DAILY IN THE MORNING AND AT BEDTIME NEEDED FOR MILD PAIN 40 tablet 1 4 Active cetirizine (ZyrTEC) 10 MG tabletIndication s:Non-seasonal allergic rhinitis, unspecified trigger Take 1 tablet (10 mg) by mouth Once per day. As needed for allergies 90 tablet 1 4 025 Active Active Problems Problem Noted Date Diagnosed Date Retained dental root 02/08/2024 Depression 12/07/2023 Assessment & Plan (12/10/2023 12:26 PM EDT): During IBH Consult Jackie presenting with depressed mood, loss of interests/pleasure , changes in sleep difficulty falling asleep, change in appetite or weight overeating, fatigue/loss of energy; for a period of 6-12 mo, for all symptoms in the context of illness or family illness. Jackie feels overwhelmed due to the amount of stress she's having. Her medical condition is also identified as main stressor and trigger for sxs. She reports having positive support from her mom and . Her portillo and sense of spirituality is very important for the pt. Jackie is planning her wedding which is also causing a lot of stress. We explored coping mechanisms to use when sxs increase. Pt was open to trying to strategies to manage stress. Reviewed and assessed for risk, current stressors and protective factors using open-ended questions. Jackie is willing to try therapy, no BH in the past. PLAN: (check all that apply) New/Additional Services needed Off-site services for Behavioral Health Integration Plan External OP therapy referral Patient Self Plan Patient to utilize skills provided in intervention , Patient [facility] as needed, Patient to engage in OP therapy , and Patient to reach out to [facility] as needed Stress 12/07/2023 Assessment & Plan (12/10/2023 12:26 PM EDT): During IBH Consult Jackie presenting with depressed mood, loss of interests/pleasure , changes in sleep difficulty falling asleep, change in appetite or weight overeating, fatigue/loss of energy; for a period of 6-12 mo, for all symptoms in the context of illness or family illness. Jackie feels overwhelmed due to the amount of stress she's having. Her medical condition is also identified as main stressor and trigger for sxs. She reports having positive support from her mom and . Her portillo and sense of spirituality is very important for the pt. Jackie is planning her wedding which is also causing a lot of stress. We explored coping mechanisms to use when sxs increase. Pt was open to trying to strategies to manage stress. Reviewed and assessed for risk, current stressors and protective factors using open-ended questions. Jackie is willing to try therapy, no BH in the past. PLAN: (check all that apply) New/Additional Services needed Off-site services for Behavioral Health Integration Plan External OP therapy referral Patient Self Plan Patient to utilize skills provided in intervention , Patient to reach out to [facility] team as needed, Patient to engage in OP therapy , and Patient to reach out to [facility] as needed Pelvic pain in female 09/14/2023 Assessment & Plan (09/14/2023 1:17 PM EDT): Intermittent sx, ?related to dysmenorrhea vs pelvic congestion syndrome, HCG negative -pelvic US with dilated parametrial vessels, o/w nml AUG 2023 -reviewed US results with pt -trial naprosyn prn -advised keep log of sx -advised RTC or contact [employer]IATE if sx worsen Chronic diarrhea 09/14/2023 Assessment & Plan (09/14/2023 1:18 PM EDT): Recent onset, likely related to pelvic sx vs IBS -start fiber supplementation BID -trial probiotic daily -consider eval with GI if no improvement Mild intermittent reactive a irway disease without complication 09/07/2023 Chronic motor tic disorder 12/08/2022 BMI 32.0-32.9,adult 12/08/2022 Relapsing remitting multiple sclerosis 8 Resolved Problems Problem Noted Date Diagnosed Date Resolved Date Acute serous otitis media 10/04/2018 Otalgia of both ears 10/04/2018 024 Encounters Date Type Department Care Team Description 06/20/2024 Telephone [facility] [address] [place] [address] Ancelmo Rivera DDS appt request my chart 04/18/2024 Telephone [facility] [address] [place], [place] [id number] Rodríguez, Saloni, ANP Nurse Triage 04/01/2024 1:45 PM EST Office Visit [facility] [address] [place] [id number] Saloni Rodríguez ANP Annual physical exam (Primary Dx); Encounter for immunization; Non-seasonal allergic rhinitis, unspecified trigger; Acute nonintractable headache, unspecified headache type 04/01/2024 Travel from Last 3 Months Immunizations Name Administration Dates Next Due DTaP 02/08/1998, 5,10/07/1994,03/18,01/03/1994 HPV, Quadrivalent 12/13/2007,02/04/2007,12/05/19 07 Hep B, Adolescent or Pediatric 10/07/1994,1993,1993 Hib ([facility]) 04/21/1995, 5,03/18/1994,01/03 IPV 02/08/1998, 5,03/18/1994,01/03 Influenza, seasonal, injecta ble, preservative free 04/01/2024 MMR 02/08/1998,01/06/1995 Meningococcal MPSV4 12/03/2005 TD (adult), 2 Lf tetanus tox oid, preservative free, adsorbed 12/13/2020 Tdap 06/04/2022,12/03/2005 Social History Tobacco Use Types Packs/Day Years Used Date Smoking Tobacco: Never Smokeless Tobacco: Never Tobacco Cessation:Counseling Given: Not Answered Alcohol Use Standard Drinks/Week Comments Not Currently 0 (1 standard drink = 0.6 oz pur e alcohol) Depression Answer Date Recorded Patient Health Questionnaire-9 Score 7 12/10/2023 Patient Health Questionnaire-9 Score 7 12/10/2023 Last PHQ-9: Questionnaire Data Not on file 0 12/10/2023 Housing Stability Answer Date Recorded What is your housing situation today? I have natalie hdz 03/23/[address] you li ve. Do you have problems with any of the following? None of the above 03/23/2024 Food Insecurity Answer Date Recorded Within the past 12 months, y ou worried that your food would run out before you got money to buy more: Sometimes True 2023 Within the past 12 months,th e food you bought just didn't last and you didn't have enough money to get more: Sometimes True 03/23/2024 Transportation Answer Date Recorded In the past 12 months, has l ack of transportation kept you from medical appts, meetings, work or from getting things needed for daily living? No 03/23/2024 Utilities Answer Date Recorded In the past 12 months, has t he electric, gas, oil or water company threatened to shut off services in your home? No 03/23/2024 Depression Answer Date Recorded Patient Health Questionnaire-2 Score 4 12/10/2023 Internet Access Answer Date Recorded Internet Access Q1 Yes 03/23/2024 Internet Access Q2 Not on file 03/23/2024 Comments Unknown Sex and Gender Information Value Date Recorded Sex Assigned at Female 03/24/2022 10:15 AM EDT Legal Sex Female 10:15 AM EDT Gender Identity Female 03/24/2022 10:15 AM EDT Sexual Orientation Straight 03/24/2022 10 :15 AM EDT Last Filed Vital Signs Vital Sign Reading Time Taken Comments Blood Pressure 114/60 04/01/2024 2:04 PM EST Pulse 80 04/01/2024 2:04 PM EST Temperature 36.7 ??C (98 ??F) 04/01/2024 2:04 PM EST Respiratory Rate 20 10/13/2023 11:49 AM EDT Oxygen Saturation 98% 04/01/2024 2:04 PM EST Inhaled Oxygen Concentration - - Weight 76.2 kg (168 lb) 04/01/2024 2:04 PM EST Height 154.9 cm (5' 1 ) 10/13/2023 11:49 AM EDT Body Mass Index 31.74 10/13/2023 11:49 AM EDT Plan of Treatment Upcoming Encounters Date Type Department Care Team (Late st Contact Info) Description 10/28/2024 11:00 AM EDT Office Visit [facility] [address] [place], [place] [phone] Sonya Liu, OD [address] [place] [address] Health Maintenance Due Date Last Done Comments Dental Oral Exam 1993 Dental Prophylaxis 1993 Dental X-Ray: Bitewings 1993 Family Planning (PISQ) 2008 Pneumococcal Vaccine: Pediatrics (0 to 5 Years) and At-Risk Patients (6 to 49) Years) (1 of 2 - PCV) 2012 Cervical Cancer Screening 12/26/2023 Pap Smear 12/26/2023 12/25/2022, 02/01/2022 COVID-19 Vaccine ( - season) 2024 Depression Screening 12/09/2024 12/10/2023, 12/10/19 24 SDOH Screening 03/23/2025 03/23/2024 Alcohol/Substance Use Screening 04/01/2025 04/01/2024 Tobacco Screening 04/01/2025 04/01/2024 Dental X-Ray: Full Mouth 02/08/2027 02/08/2024 HPV/Cotest 12/26/2027 12/25/2022, 02/01/2022 DTaP/Tdap/Td Vaccines (9 - Td or Tdap) 06/04/2032 06/04/2022, 12/13/2020, 12/03/2005, Additional history exists Zoster Vaccines (1 of 2) 10/26/2043 RSV Patients and Patients Aged 60 years or older (1 - 1-dose 75+ series) 2068 Hepatitis B Vaccines Completed 10/07/1994, 01/03/1994, 1993 HIB Vaccines Completed 04/21/1995, 09/22, 03/18/1994, Additional history exists IPV Vaccines Completed 02/08/1998, 09/22, 03/18/1994, Additional history exists Meningococcal Vaccine Aged Out 12/03/2005 No bella tarik eligible based on patient's age to complete this topic HPV Vaccines Completed 12/13/2007, 01/23, 12/04/2006 HIV Screening Completed 07/17/2021 Hepatitis C Screening Completed 07/17/2021 Influenza Vaccine Completed 04/01/2024 Hepatitis A Vaccines Aged Out No long er eligible based on patient's age to complete this topic RSV under 20 months Aged Out No longe r eligible based on patient's age to complete this topic Rotavirus Vaccines Aged Out No longer eligible based on patient's age to complete this topic Procedures Procedure Name Priority Date/Time Associated Diagnosis Comments PANORAMIC RADIOGRAPHIC IMAGE Routine 02/08/2024 11:30 AM EDT HM PAP/HPV Routine 12/25/2022 ZZZ HISTORICAL HEPATITIS C AB W/REFL TO HCV RNA, QN, PCR Routine 07/17/2021 3:06 PM EST HIV 1/2 ANTIGEN/ANTIBODY, FOURTH GENERATION W/RFL Routine 07/17/2021 3:06 PM EST from Last 3 Months or Most Recently Relevant to Health Maintenance Results * Pap Smear (12/25/2022) Pap Negative for intraephithelial lesion or malignancy Negative for intraephithelial lesion or malignancy, Other HPV Not Detected Undetected, Indeterminate, Quantitative, Not Detected us Historical Provider MD HEALTH MAINTENANCE Final Result * HEPATITIS C AB W/REFL TO HCV RNA, QN, PCR (07/17/2021 3:06 PM EST) HEPATITIS C ANTIBODY NON-REACT SHARON NON-REACT SHARON [facility] INDEX 0.02 <1.00 [facility] Comment: ?? HCV antibody was non-reactive. There is no laboratory ?? evidence of HCV infection. ?? In most cases, no further action is required. However, if recent HCV exposure is suspected, a test for HCV RNA (test code 79780) is suggested. ?? For additional information please refer to http://education.Parature.Pixaf[employer]/faq/MIB66k7 (This link is being provided for informational/ educational purposes only.) ?? 07/17/2021 3:06 PM EST us Chantell PARRISH HISTORICAL/NON ORDERABLE LABS Final Result [facility] [address] * HIV 1/2 ANTIGEN/ANTIBODY,FOURTH GENERATION W/RFL (07/17/2021 3:06 PM EST) HIV-1/2 ANTIGEN AND ANTIBODIES, 4TH GENERATION W/ REFLEX NON-REACT SHARON NON-REACT SHARON [facility] Comment: HIV-1 antigen and HIV-1/HIV-2 antibodies were not detected. There is no laboratory evidence of HIV infection. ?? PLEASE NOTE: This information has been disclosed to you from records whose confidentiality may be protected by state law. ??If your state requires such protection, then the state law prohibits you from making any further disclosure of the information without the specific written consent of the person to whom it pertains, or as otherwise permitted by law. A general authorization for the release of medical or other information is NOT sufficient for this purpose. ? For additional information please refer to http://education.[employer]/faq/PPK839 (This link is being provided for informational/ educational purposes only.) ? The performance of this assay has not been clinically validated in patients less than 2 years old. ?? 07/17/2021 3:06 PM EST us Chantell Davies W[employer]TER[employer] LAB BLOOD ORDERABLES Final Res ult [facility] [address] from Last 3 Months or Most Recently Relevant to Health Maintenance Insurance * Guarantor: Jackie Decker Account Type Relation to Patient Date of Phone Billing Address Personal/Family Self [address] [place] [id number] [facility] ST[place] AD[place] Care Teams Gardening Manager Relationship Specialty Start Date End Date Saloni Rodríguez ANP [address] [place] [address] PCP - General Family Medicine 11/16/19
--- OUTSIDE RECORDS SUMMARY | 2024-07-01 14:31 | XMS_ITS | Encounter Summary ---
Author Organization [employer] Address [address] [facility] [address] [place] [address] Care Team Providers Care Steam Clean Machine Operator Name Role Phone Saloni Rodríguez ZE Primary Care Provider [phone] Reason for Visit * Reason Onset Date Comments appt request my chart 06/20/2024 Encounter Details Date Type Department Care Team ([facility] st Contact Info) Description 06/20/2024 Telephone [facility] [address] [place] [address] Ancelmo Rivera DDS [address] [place] [address] appt request my chart Social History Tobacco Use Types Packs/Day Years Used Date Smoking Tobacco: Never Smokeless Tobacco: Never Alcohol Use Standard Drinks/Week Comments Not Currently [...] Orientation Straight 03/24/2022 10 :15 AM EDT documented as of this encounter Miscellaneous Notes * Telephone Encounter - Marcy Parada - 06/20/2024 1:07 PM EST Phone message came in through My Chart. Ellen forwarded information stating that patient needs dental visits. Reached out to patient. No answer. Left department name, phone number and number 2 option for dental and encouraged patient to call back to verify if emergency or regular visit. I did request a comp appt as patient has not been seen since 2019 and seems appts have been base off emergencies DR documented in this encounter Plan of Treatment Upcoming Encounters Date Type Department Care Team (Late st Contact Info) Description 10/28/2024 11:00 AM EDT Office Visit [facility] [address] [place] [address] Noe, Sonya, OD [address] [place] [address] documented as of this encounter Visit Diagnoses Not on filedocumented in this encounter Additional Health Concerns Assessment Noted Time PHQ-9 Depression Total Score: 7 12/10/19 24 12:13 PM EDT documented as of this encounter Care Teams Steam Clean Machine Operator Relationship Specialty Start Date End Date Saloni Rodríguez ANP [address] [place] [address] PCP - General Family Medicine 11/16/19 documented as of this encounter
--- OUTSIDE RECORDS SUMMARY | 2024-07-01 14:31 | XMS_ITS | Encounter Summary ---
Author Organization [email or web address] Address [address] [facility] 7t [place] [address] Care Team Providers Care Medical Charge Entry Specialist Name Role Phone Saloni Rodríguez Primary Care Provider Reason for Visit * Reason Onset Date Comments Nurse Triage 11/16/2023 Encounter Details Date Type Department Care Team ([facility] st Contact Info) Description 11/16/2023 Telephone [facility] MEDICINE [address] [place] [address] Saloni Rodríguez ANP [address] [place] [address] Nurse Triage Social History Tobacco Use Types Packs/Day Years Used Date Smoking Tobacco: Never Smokeless Tobacco: Never Alcohol Use Standard Drinks/Week Comments Not Currently 0 (1 standard drink = 0.6 oz pur e alcohol) Housing Stability Answer Date Recorded What is your housing situation today? I am not s ure 03/29/[address] you li ve. Do you have problems with any of the following? None of the above 03/29/2023 Food Insecurity Answer Date Recorded Within the past 12 months, y ou worried that your food would run out before you got money to buy more: Never True 03/29/2023 Within the past 12 months,th e food you bought just didn't last and you didn't have enough money to get more: Never True 09/2022 Transportation Answer Date Recorded In the past 12 months, has l ack of transportation kept you from medical appts, meetings, work or from getting things needed for daily living? No 03/29/2023 Utilities Answer Date Recorded In the past 12 months, has t he electric, gas, oil or water [employer] threatened to shut off services in your home? No 03/29/2023 Depression Answer Date Recorded Patient Health Questionnaire-2 Score 0 12/08/2022 Comments Unknown Sex and Gender Information Value Date Recorded Sex Assigned at Female 03/24/2022 10:15 AM EDT Legal Sex Female 10:15 AM EDT Gender Identity Female 03/24/2022 10:15 AM EDT Sexual Orientation Straight 03/24/2022 10 :15 AM EDT documented as of this encounter Miscellaneous Notes * Telephone Encounter - Mare Lazaro RN - 11/16/2023 5:03 PM EDT Triage call Pt reports for last month and a half Pt has been noticing swelling of the right knee and edema from thigh to foot. Pt is able to ambulate as usual. Pt reports right knee is not red or warm to touch. Pt does have some pain in that knee. Pt also has slight swelling in left leg also. Pt denies injury, difficulty breathing. Pt does take tylenol extra strength daily with good effect. No apt available in office. Pt is advised to come to [facility] to be seen by provider. Hours given, open till 8pm this evening and 830am - 800pm / Thu. Pt reports will come to the [facility] in the next 2 days. Pt is advised to try ice to knee or heat. Keep leg elevated when resting and try to decrease activity for a day or so. Pt agrees with disposition and home care advised. Insurance is verified as active. Protocol Used: Leg Swelling and Edema (Adult) Protocol-Based Disposition: See in Office or Video Visit within 3 Days Video visit not offered Positive Triage Question: * Mild swelling of both ankles (i.e., pedal edema) AND new-onset or worsening * All higher-acuity triage questions were negative Care Advice Discussed: * Reasons To Call Back - Swelling becomes worse - Swelling becomes red or painful to the touch - Calf pain occurs and becomes constant - You become worse * Telephone Encounter - Edward Segundo - 11/16/2023 4:41 PM EDT Symptom: Leg Swelling - Not From Injury Outcome: Schedule an urgent appointment (within 1 hour) or talk to a nurse or provider soon Reason: Severe leg pain now documented in this encounter Plan of Treatment Upcoming Encounters Date Type Department Care Team (Late st Contact Info) Description 10/28/2024 11:00 AM EDT Office Visit [facility] OPTOMETRY [address] [place] [address] Sonya Liu OD [address] [place] [address] documented as of this encounter Visit Diagnoses Not on filedocumented in this encounter Care Teams Medical Charge Entry Specialist Relationship Specialty Start Date End Date Saloni Rodríguez ANP [address] [place] [address] PCP - General Family Medicine 11/16/19 documented as of this encounter
[2024-07-11 09:09] LABS: HPV Genotype 16 Negative (Negative); HPV Genotype 18 Negative (Negative); HPV High Risk Negative (Negative)
== END 2024-07-01 13:44 | disposition home or self-care (01) ==
LOC: HO.LNP 13:43
PROVIDERS: PCP Nurse Practitioner Primary Care; Visit Provider Obstetrics & Gynecology
DX: Z01.419 Encounter for gynecological examination (general) (routine) without abnormal findings (principal); Z11.51 Encounter for screening for human papillomavirus (HPV); Z11.3 Encounter for screening for infections with a predominantly sexual mode of transmission; N64.4 Mastodynia
CPT/HCPCS: 81025; 87626; 88175; 99212; 99395; 99459

== ENCOUNTER → 2024-07-01 13:43 | Outpatient (AMB) | payer MEDICAID, SELFPAY | END | disposition home or self-care (01) | PROVIDERS: PCP Nurse Practitioner Primary Care; Visit Provider Obstetrics & Gynecology | CPT/HCPCS: 99213; 99395; 99459 ==

== ENCOUNTER 2024-09-07 15:51 | Outpatient (REF) | payer MEDICAID, SELFPAY ==
--- OUTSIDE RECORDS SUMMARY | 2024-09-07 18:10 | XMS_ITS | Encounter Summary ---
Author Organization [employer] Address [address] [facility] 7t [place] [address] Care Team Providers Care Enterprise Application Developer Name Role Phone Saloni Rodríguez ZE Primary Care Provider [phone] Reason for Visit * Reason Onset Date Comments appt request my chart 06/20/2024 Encounter Details Date Type Department Care Team ([facility] st Contact Info) Description 06/20/2024 Telephone [facility] ADULT DENTAL [address] [place] [address] Ancelmo Rivera DDS [address] [place] [address] appt request my chart Social History Tobacco [...] Care Team (Late st Contact Info) Description 09/29/2024 1:00 PM EDT Office Visit [facility] MEDICINE 230 [place] [address] Saloni Rodríguez ANP [address] [place], [place] [phone] 10/28/2024 11:00 AM EDT Office Visit [facility] OPTOMETRY [address] [place] [address] Sonya Liu, OD 230 [place] [address] documented as of this encounter Visit Diagnoses Not on filedocumented in this encounter Additional Health Concerns Assessment Noted Time PHQ-9 Depression Total Score: 7 12/10/19 24 12:13 PM EDT documented as of this encounter Care Teams Enterprise Application Developer Relationship Specialty Start Date End Date Saloni Rodríguez ANP [address] [place] [address] PCP - General Family Medicine 11/16/19 documented as of this encounter
--- OUTSIDE RECORDS SUMMARY | 2024-09-07 18:10 | XMS_ITS | Encounter Summary ---
Author Organization [employer] Address [address] [facility] 7t [place] [address] Care Team Providers Care Scorer Helper Name Role Phone Saloni Rodríguez Primary Care Provider [phone] Reason for Visit * Reason Onset Date Comments Nurse Triage 11/16/2023 Encounter Details Date Type Department Care Team ([facility] st Contact Info) Description 11/16/2023 Telephone [facility] MEDICINE [address] [place] [address] Saloni Rodríguez ANP [address] [place] [address] Nurse Triage Social History Tobacco Use Types [...] t he electric, gas, oil or water [employer] threatened to shut off services in your [...] office. Pt is advised to come to [facility] to be seen by provider. Hours given, open till 8pm this evening and 830am - 800pm / Thu. Pt reports will come to the [facility] in the next 2 days. Pt is [...] Description 09/29/2024 1:00 PM EDT Office Visit [facility] MEDICINE [address] [place] [address] Saloni Rodríguez ANP [address] [place] [address] 10/28/2024 11:00 AM EDT Office Visit [facility] OPTOMETRY [address] [place] [address] Sonya Liu, MATHEW 230 [place] [address] documented as of this encounter Visit Diagnoses Not on filedocumented in this encounter Care Teams Scorer Helper Relationship Specialty Start Date End Date Saloni Rodríguez ANP [address] [place] [address] PCP - General Family Medicine 11/16/19 documented as of this encounter
--- OUTSIDE RECORDS SUMMARY | 2024-09-07 18:10 | XMS_ITS | Encounter Summary ---
Author Organization [employer] Address [address] [facility] 7t [place] [address] Care Team Providers Care Polishing Pad Mounter Name Role Phone Saloni Rodríguez Primary Care Provider [phone] Reason for Visit * Reason Onset Date Comments Nurse Triage 09/01/2024 Encounter Details Date Type Department Care Team ([facility] st Contact Info) Description 09/01/2024 Telephone [facility] MEDICINE [address] [place] [address] Saloni Rodríguez ANP [address] [place] [address] Nurse Triage Social History Tobacco Use Types [...] encounter Miscellaneous Notes * Telephone Encounter - Linda Ramirez RN - 09/03/2024 9:44 AM EDT Telephone call placed to patient in regards to message below. No answer, left voicemail. Patient tocall as needed. * Telephone Encounter - ZE Pelaez - 09/02/2024 4:27 PM EDT Please advise pt, if IUD is hormonal (mirena, liletta, kyleena) - very normal not to have menses, may have spotting. No need to take tests. Can order blood hcg given the 1 positive test butplease encourage pt to stop testing if blood test is negative. * Telephone Encounter - Alexandra Shannon RN - 09/01/2024 1:06 PM EDT Images from the original note were not included. Call returned to Jackie Decker to triage below. Reports having IUD back in June by [facility] by Dr. Molina. Per pt states did call office of PACK ROOM OPERATOR to notify. Pt states was seen again to check for IUD placement and in place. US was ordered by PACK ROOM OPERATOR but pt has not yet completed. Upon review of [facility] Womens OV note from 07/01/24 no US of Uterus noted, only US of Right and Left breast for pain. Pt endorses having spotting back in June for one day. Pt advised will forward request to PCP to review request for order but also recommended contact [facility] PACK ROOM OPERATOR to notify of concerns and see if they haveany further recommendations for testing or rechecking IUD placement. Pt agrees. Protocol Used: Contraception - IUD Symptoms and Questions (Adult) Protocol-Based Disposition: Home Care Override (Final) Disposition: Discuss with PCP and Callback by Nurse Today Override Reason: Other Override Notes: Requesting Blood work Positive Triage Question: * Menstrual period, missed or late * All higher-acuity triage questions were negative Care Advice Discussed: * Intrauterine Device (IUD) - FAQs * Reasons To Call Back * Reassurance and Education - Missed or Late Period * Reasons To Call Back - You become worse Blood test Received: Today Jackie Decker [facility] Clinical Support Hi, yes in June I tested positive for test that I took from urine and for the past two months I???ve been taking test because I haven???t gotten my period and they???re comingback negative. I would like to schedule a blood test to just be certain because it???s not normal for me not to have my period and the last time I had it Was right after I got my control implanted and I normally have a regular period and I haven???t been having it. I just have that concern. And I was wondering if I can get an exam done through blood at the clinic because my OB/GYNdoes not want to do it thank you Blood test (Newest Message First) View All Conversations on this Encounter Jackie Lyn Clinical Support (supporting ZE Pelaez)28 minutes ago (12:35 PM) Hi, yes in June I tested positive for test that I took from urine and for the past two months I???ve been taking test because I haven???t gotten my period and they???re comingback negative. I would like to schedule a blood test to just be certain because it???s not normal for me not to have my period and the last time I had it Was right after I got my control implanted and I normally have a regular period and I haven???t been having it. I just have that concern. And I was wondering if I can get an exam done through blood at the clinic because my OB/GYNdoes not want to do it thank you documented in this encounter Plan of Treatment Upcoming Encounters Date Type Department Care Team (Late st Contact Info) Description 09/29/2024 1:00 PM EDT Office Visit [facility] MEDICINE [address] [place] [address] Saloni Rodríguez ANP [address] [place] [address] 10/28/2024 11:00 AM EDT Office Visit [facility] OPTOMETRY [address] [place] [address] Noe, Sonya, OD [address] [place] [address] Scheduled Orders Name Type Priority Associated Diagnoses Orde r Schedule hCG, Total, Quantitative Lab Routine Positive urine test Expected: 09/02/2024 (Approximate), Expires: 09/02/2025 documented as of this encounter Visit Diagnoses Diagnosis Positive urine test- Primary documented in this encounter Additional Health Concerns Assessment Noted Time PHQ-9 Depression Total Score: 7 12/10/19 24 12:13 PM EDT documented as of this encounter Care Teams Polishing Pad Mounter Relationship Specialty Start Date End Date Saloni Rodríguez ANP 230 [place] [address] PCP - General Family Medicine 11/16/19 documented as of this encounter
--- OUTSIDE RECORDS SUMMARY | 2024-09-07 18:10 | XMS_ITS | Encounter Summary ---
Author Organization [employer] Address [address] [facility] 7t [place] [address] Care Team Providers Care Scheduling Assistant Name Role Phone Anne Saloni KUNZ Primary Care Provider [phone] Reason for Visit * Reason Onset Date Comments NTTS 09/06/2024 Encounter Details Date Type Department Care Team ([facility] st Contact Info) Description 09/06/2024 Telephone [facility] MEDICINE [address] [place] [address] Brionna Dumont RN [address] [place] [address] NTTS Social History Tobacco Use Types Packs/Day Years [...] encounter Miscellaneous Notes * Telephone Encounter - Brionna Dumont RN - 09/06/2024 11:39 AM EDT Pt called NTTS 09/03/24 returning call to Linda (see triage note from 09/01/24). Pt reported that she has an IUD but in April she took a test and it was positive. Since then, has taken many tests and they are all negative. Worried because of no menses and weight gain that she is and does not wish to become . Advised to call when office is open regarding this. Pt has not called since then. Telephone call placed to pt. Discussed below message from PCP. Pt reports believes she has [id number] IUD. Discussed how it is normal to have spotting or no period while on IUD but just to be sure,PCP did order serum HCG. Pt will come in to get it done. Please advise pt, if IUD is hormonal (mirena, liletta, kyleena) - very normal not to have menses, may have spotting. No need to take tests. Can order blood hcg given the 1 positive test but please encourage pt to stop testing if blood test is negative. documented in this encounter Plan of Treatment Upcoming Encounters Date Type Department Care Team (Late st Contact Info) Description 09/29/2024 1:00 PM EDT Office Visit [facility] MEDICINE [address] [place] [address] Saloni Rodríguez ANP [address] [place] [address] 10/28/2024 11:00 AM EDT Office Visit [facility] OPTOMETRY [address] [place] [address] Sonya Liu, OD [address] [place] [address] documented as of this encounter Visit Diagnoses Not on filedocumented in this encounter Additional Health Concerns Assessment Noted Time PHQ-9 Depression Total Score: 7 12/10/19 24 12:13 PM EDT documented as of this encounter Care Teams Scheduling Assistant Relationship Specialty Start Date End Date Saloni Rodríguez ANP [address] [place], [place] [phone] PCP - General Family Medicine 11/16/19 documented as of this encounter
--- OUTSIDE RECORDS SUMMARY | 2024-09-07 18:11 | XMS_ITS | Clinical Summary ---
Author Organization [employer] Address [address] [facility] 7t [place] [address] Care Team Providers Care Internet Marketing Coordinator Name Role Phone Kade Marshall ZE Primary Care Provider [phone] Allergies Active Allergy Reactions Criticality Noted Date Comments Glatiramer Acetate Unknown 02/20/2023 Dust Mite Extract 12/08/2022 Other reaction(s): nasal congestion Medications * This document contains information received from the source organization and may not represent a complete record from that organization. 27-1 MG tablet Take 1 tablet by mouth in the morning. 3 Active Saccharomyces boulardii (probiotic) 250 MG [...] allergies 90 tablet 1 4 025 Active albuterol 108 (90 Base) MCG/ACT inhalerIndicatio ns:Mild intermittent reactive airway disease without complication INHALE 2 PUFFS BY MOUTH EVERY 6 HOURS NEEDED FOR WHEEZING 18 g 1 5 Active Active Problems Problem Noted Date Diagnosed [...] intervention , [facility], Patient to engage [...] intervention , Patient to reach out to [facility] team as needed, Patient to engage in [...] log of sx -advised RTC or contact MATERIALS MANAGEMENT CLERK if sx worsen Chronic diarrhea 09/14/2023 Assessment [...] Encounters Date Type Department Care Team Description 09/06/2024 Telephone [facility] MEDICINE [address] [place] [address] Brionna Dumont, RN NTTS 09/01/2024 Telephone [facility] MEDICINE [address] [place] [address] Kade Marshall, ANP Nurse Triage 08/05/2024 Population Health Risk Score [facility] (C[facility]) Department [address] [facility] [address] [place] [address] Provider, Population Health Generic 07/10/2024 Refill [facility] MEDICINE [address] [place] [address] Kade Marshall ANP Mild intermittent reactive airway disease without complication 06/20/2024 Telephone [facility] ADULT DENTAL [address] [place] [address] Ancelmo Rivera DDS appt request my chart from Last 3 Months Immunizations Name Administration Dates Next Due DTaP 02/08/1998, 5,10/07/1994,03/18,01/03/1994 HPV, Quadrivalent 12/13/2007,02/04/2007,12/05/19 07 Hep B, Adolescent or Pediatric 10/07/1994,1993,1993 Hib (HbO) 04/21/1995, 5,03/18/1994,01/03 IPV 02/08/1998, 5,03/18/1994,01/03 Influenza, seasonal, [...] Description 09/29/2024 1:00 PM EDT Office Visit [facility] MEDICINE [address] [place] [address] Kade Marshall, ANP [address] [place] [address] 10/28/2024 11:00 AM EDT Office Visit [facility] OPTOMETRY [address] [place] [address] Sonya Liu, OD [address] [place] [address] Health Maintenance Due Date Last Done Comments Dental Oral Exam 1993 Dental Prophylaxis 1993 Dental X-Ray: Bitewings 1993 Family Planning (PISQ) 2008 Pneumococcal Vaccine: Pediatrics (0 to 5 Years) and At-Risk Patients (6 to 49) Years) (1 of 2 - PCV) 2012 COVID-19 Vaccine ( - 2023- season) 2024 Depression Screening 12/09/2024 12/10/2023, 12/10/19 24 SDOH Screening 03/23/2025 03/23/2024 Alcohol/Substance Use Screening 04/01/2025 04/01/2024 Tobacco Screening 04/01/2025 04/01/2024 Cervical Cancer Screening 07/01/2025 Pap Smear 07/01/2025 07/01/2024, 08/0 07/2022, 02/01/2022 Dental X-Ray: Full Mouth 02/08/2027 02/08/2024 HPV/Cotest 07/01/2029 07/01/2024, 08/0 07/2022, 02/01/2022 DTaP/Tdap/Td Vaccines (9 - Td or [...] Procedure Name Priority Date/Time Associated Diagnosis Comments PAP SMEAR Routine 07/01/2024 2:10 PM EST HPV DNA, LOW/HIGH RISK Routine 07/01/2024 2:10 PM EST PANORAMIC RADIOGRAPHIC IMAGE Routine 02/08/2024 11:30 AM EDT ZZZ HISTORICAL HEPATITIS C AB W/REFL TO HCV RNA, QN, PCR Routine 07/17/2021 3:06 PM EST HIV 1/2 ANTIGEN/ANTIBODY, FOURTH GENERATION W/RFL Routine 07/17/2021 3:06 PM EST from Last 3 Months or Most Recently Relevant to Health Maintenance Results * HPV DNA, Low/High Risk (07/01/2024 2:10 PM EST) HPV High Risk Negative Negative [facility] HPV Genotype 16 Negative Negative [facility] HPV Genotype 18 Negative Negative [facility] Comment:HPV testing performe d at [facility] (CLIA#[id number]), [address] [place] [id number].Testing for HPV was performed using the [employer] App[employer]end[employer]system. The presence of HPV in the female genital tract isassociated with a number of diseases, including cervicalcarcinoma. The HPV DNA high risk pool tests for HPV 31, 33,35, 39, 45, 51, 52, 56, 58, 59, 66 and 68. The testing forHPV 16 and 18 genotypes has also been performed. A positiveresult indicates detection of nucleic acid sequences fromone or more subtypes, whereas a negative result indicatessuch sequences were not detected. 07/01/2024 2:10 PM EST 07/04/2024 8:20 AM EST us Generic External Data Provider LAB BLOOD ORDERAB LES Final Result [facility] [address] [place] [phone] * Pap Smear (07/01/2024 2:10 PM EST) 07/01/2024 2:10 PM EST 07/04/2024 8:20 AM EST Narrative [facility] - 07/09/2024 10:02 AM EST ----- ------- Name: Jackie Decker ?Age/Sex: 28/F ? : 1995 Unit#: [id number] ?? Attend Dr: Brandyn Molina MD ?Re07/01/24 ?Status: DEP REF ? Location: HO.LNP ?Disch: ? ----- ------- SPEC : [id number] ? RECD: 07/04/24 ? STATUS: ??SOUT ? REQ NUM: [id number] ? ROSSANA: 07/01/24 ? SUBM DR: Brandyn Molina MD ? ENTERED: ??07/04/24 ?SP TYPE: Pap Smr ?OTHR DR: KADE MARSHALL NP ? ORDERED: ??Pap Smear ? Interpretation ?? Satisfactory for evaluation. ?? Negative for intraepithelial lesion or malignancy. ?? Coccobacilli consistent with shift in vaginal obed. ? HPV High Risk: ??Negative ? HPV Genotyping 16: ??Negative ?? HPV Genotyping 18: ??Negative ?Clinical Information LMP: Mirena Previous PAP test: Unknown date/findings ? Material Received ?? ThinPrep-Cervical Copies To: ?? KADE MARSHALL NP ?? [facility] ?? [address] [place] [address] ?? [place] [address] ?? [phone] ?? Brandyn Molina MD ?? [facility] ?? [address] [facility] [address] ?? [place] [address] ?? [phone] ----- ------- Signed (signature on file) JIMMY James ([facility]) 07/09/24 1002 ? ----- ------- ? END OF REPORT ? us Generic External Data Provider LAB CYTOLOGY [facility] Final Result [facility] [address] [place] [address] [phone] * HEPATITIS C AB W/REFL TO HCV RNA, QN, PCR (07/17/2021 3:06 PM EST) HEPATITIS C ANTIBODY NON-REACT SHARON NON-REACT SHARON [facility] INDEX 0.02 <1.00 [facility] Comment: ?? HCV antibody was non-reactive. There is no laboratory ?? evidence of HCV infection. ?? In most cases, no further action is required. However, if recent HCV exposure is suspected, a test for HCV RNA (test code 62204) is suggested. ?? For additional information please refer to http://education.[employer]/faq/XPX96s2 (This link is being provided for informational/ educational purposes only.) ?? 07/17/2021 3:06 PM EST Chantell Samson SOURCING SPECIALIST HISTORICAL/NON ORDERABLE LABS Final Result Performing Organization Address [facility] de Phone Number [facility] [address] * HIV 1/2 ANTIGEN/ANTIBODY,FOURTH GENERATION W/RFL (07/17/2021 3:06 PM EST) HIV-1/2 ANTIGEN AND ANTIBODIES, 4TH GENERATION W/ REFLEX NON-REACT SHARON NON-REACT SHARON [facility] Comment: HIV-1 antigen and HIV-1/HIV-2 [...] ? For additional information please refer to http://education.[employer]/faq/OAL207 (This link is being provided for informational/ educational purposes only.) ? The performance of this assay has not been clinically validated in patients less than 2 years old. ?? 07/17/2021 3:06 PM EST Chantell Samson SOURCING SPECIALIST LAB BLOOD ORDERABLES Final Res ult Performing Organization Address [facility] de Phone Number [facility] [address] from Last 3 Months or Most Recently Relevant to Health Maintenance Insurance [facility] C[facility] MEDICAID STAND ADULT Care Teams Internet Marketing Coordinator Relationship Specialty Start Date End Date Kade Marshall ANP [address] [place] [address] PCP - General Family Medicine 11/16/19
[2024-09-07 18:29] LABS: HCG Quantitative < 2 mIU/mL
== END 2024-09-07 15:52 | disposition home or self-care (01) ==
LOC: HO.HHCL 15:51
PROVIDERS: Visit Provider Nurse Practitioner Primary Care
DX: Z32.01 Encounter for pregnancy test, result positive (principal)
CPT/HCPCS: 36415; 84702

== ENCOUNTER 2024-09-20 09:17 | Outpatient (REF) | payer MEDICAID, SELFPAY ==
--- NOTE | ~2024-09-20 | US_ITS ---
EXAMINATION: MM DIAGNOSTIC DIGITAL BREAST TOMOSYNTHESIS, BILATERAL Bilateral Limited ultrasound. CLINICAL INFORMATION: Bilateral white and milky nipple discharge. Patient stopped breast-feeding one year ago. COMPARISON: Mammography: Comparison is made with relevant prior exams. TECHNIQUE: Digital breast mammography with tomosynthesis is performed in both the craniocaudal and mediolateral oblique views along with computer-aided detection (CAD). FINDINGS: The breasts are heterogeneously dense, which may obscure small masses (ACR BI-RADS breast composition Category c). Right: There is an asymmetry in the superior breast middle to posterior depth on MLO view. Line no suspicious calcifications or other abnormal findings. Targeted color Doppler ultrasound scanning in the retroareolar region area of nipple discharge demonstrates normal fibronodular breast tissue. Targeted color Doppler ultrasound scanning in the upper outer quadrant upper central breast demonstrates normal fibronodular breast tissue. There is no sonographic correlate for the asymmetry seen on mammography. Left: There are no significant masses, abnormal calcifications, or other abnormalities. Targeted color Doppler ultrasound scanning in the retroareolar region area of patient's nipple discharge demonstrates normal fibronodular breast tissue. Results are provided to the patient at time of visit by the technologist. US/US breast BI limited mamm only IMPRESSION: Left: No mammographic or sonographic abnormality to account for the patient's nipple discharge. Recommend clinical evaluation and follow-up. Right: 1. Asymmetry in the superior breast on MLO view partially effaces and without sonographic correlate. Recommend six-month follow-up mammography for further evaluation of stability. 2. No mammographic or sonographic abnormality to account for the patient's milky and white nipple discharge. Recommend clinical evaluation follow-up. ASSESSMENT: BI-RADS BI-RADS 3 - Probably benign finding(s) - 6 month follow-up suggested RECOMMENDATION: 6 Month F/U This patient's information was entered into a reminder system with a target due date for their next mammogram. Electronically signed by: Carmen Mathis DO 09/20/2024 11:01 AM EDCaron
--- OUTSIDE RECORDS SUMMARY | 2024-09-20 10:07 | XMS_ITS | Encounter Summary ---
Author Organization [employer] Address [address] [facility] 7t [place] [address] Care Team Providers Care Digital Specialist Name Role Phone Saloni Rodríguez ZE Primary Care Provider [phone] Reason for Visit * Reason Onset Date Comments appt request my chart 06/20/2024 Encounter Details Date Type Department Care Team ([facility] st Contact Info) Description 06/20/2024 Telephone [facility] ADULT DENTAL [address] [place] [address] Ancelmo Rivera DDS [address] [place] [address] appt request my chart Social History Tobacco [...] Description 09/29/2024 1:00 PM EDT Office Visit [facility] MEDICINE [address] [place] [address] Saloni Rodríguez ANP [address] [place], [place] [phone] 10/28/2024 11:00 AM EDT Office Visit [facility] OPTOMETRY [address] [place] [address] Sonya Liu, OD [address] [place] [address] documented as of this encounter Visit Diagnoses Not on filedocumented in this encounter Additional Health Concerns Assessment Noted Time PHQ-9 Depression Total Score: 7 12/10/19 24 12:13 PM EDT documented as of this encounter Care Teams Digital Specialist Relationship Specialty Start Date End Date Saloni Rodríguez ANP [address] [place] [address] PCP - General Family Medicine 11/16/19 documented as of this encounter
--- OUTSIDE RECORDS SUMMARY | 2024-09-20 10:07 | XMS_ITS | Clinical Summary ---
Author Organization [employer] Address [address] [facility] 7t [place] [address] Care Team Providers Care Alley Tender Name Role Phone Kade Marshall ZE Primary Care Provider [phone] Allergies Active Allergy Reactions Criticality Noted Date Comments Glatiramer Acetate Unknown 02/20/2023 Dust Mite Extract 12/08/2022 Other reaction(s): nasal congestion Medications * This document contains information received from the source organization and may not represent a complete record from that organization. 27-1 MG tablet Take 1 tablet by mouth in the morning. 06/30/19 23 Active Levonorgestrel (Mirena, 52 MG,) 20 MCG/DAY intrauterine device by Intrauterine route. Active naproxen (Naprosyn) 500 MG tablet TAKE 1 TABLET BY MOUTH TWICE DAILY IN THE MORNING AND AT BEDTIME NEEDED FOR MILD PAIN 40 tablet 1 01/28/20 24 Active cetirizine (ZyrTEC) 10 MG tabletIndication s:Non-seasonal allergic rhinitis, unspecified trigger Take 1 tablet (10 mg) by mouth Once per day. As needed for allergies 90 tablet 1 04/01/20 24 025 Active albuterol 108 (90 Base) MCG/ACT inhalerIndicatio ns:Mild intermittent reactive airway disease without complication INHALE 2 PUFFS BY MOUTH EVERY 6 HOURS NEEDED FOR WHEEZING 18 g 1 07/12/19 25 Active Saccharomyces boulardii (probiotic) 250 MG capsule Take 1 capsule (250 mg) by mouth Once per day. 30 capsule 3 09/14/19 24 025 Additional Information Patient not taking.Reported on 03/10/2024 polycarbophil (FiberCon) 625 MG tablet Take 1 tablet (625 mg) by mouth 2 times daily. 60 tablet 3 09/14/19 24 025 Additional Information Patient not taking.Reported on 03/10/2024 Active Problems Problem Noted Date Diagnosed Date [...] intervention , [facility], Patient to engage in [...] intervention , Patient to reach out to [facility] team as needed, Patient to engage in [...] log of sx -advised RTC or contact G[employer]ER if sx worsen Chronic diarrhea 09/14/2023 Assessment [...] Type Department Care Team Description 09/06/2024 Telephone [facility] MEDICINE [address] [place] [address] Brionna Dumont, RN NTTS 09/01/2024 Telephone [facility] MEDICINE [address] [place] [address] Kade Marshall, ANP Nurse Triage 08/05/2024 Population Health Risk Score [facility] () Department [address] [address] Provider, Population Health Generic 07/10/2024 Refill [facility] MED[facility]INE [address] [place] [address] Kade Marshall ANP Mild intermittent reactive airway disease without complication from Last 3 Months Immunizations Name Administration [...] Description 09/29/2024 1:00 PM EDT Office Visit [facility] MEDICINE [address] [place], [place] [phone] Kade Marshall ANP [address] [place], [place] [phone] 10/28/2024 11:00 AM EDT Office Visit [facility] OPTOMETRY [address] [place], [place] [phone] Sonya Liu, OD [address] [place] [address] Health Maintenance Due Date Last Done Comments Dental Oral Exam 1993 Dental Prophylaxis 1993 Dental X-Ray: Bitewings 1993 Family Planning (PISQ) 2008 Pneumococcal Vaccine: Pediatrics (0 to 5 Years) and At-Risk Patients (6 to 49) Years) (1 of 2 - PCV) 2012 COVID-19 Vaccine (1 - 2023- season) 2024 Depression Screening 12/09/2024 [...] Procedure Name Priority Date/Time Associated Diagnosis Comments HCG, TOTAL, QN Routine 09/07/2024 3:53 PM EDT Positive urine test PAP SMEAR Routine 07/01/2024 2:10 PM EST [...] Recently Relevant to Health Maintenance Results * hCG, Total, Quantitative (09/07/2024 3:53 PM EDT) HCG Quantitative <2 mIU/mL [facility] Comment:Weeks post LMP Appro ximate hCG(Last Menstrual Period) Range (mIU/ml)3 - 4 weeks 9 - 1304 - 5 weeks 75 - 2,6005 - 6 weeks 850 - 20,8006 - 7 weeks 4000 - 100,2007 - 12 weeks 11,500 - 289,84469 - 16 weeks 18,300 - 137,55669 - 29 weeks (2nd trimester) 1,400 - 53,61995 - 41 weeks (3rd trimester) 940 - 60,000The [place] B- hCG assay is used for the early detection ofpregnancy; it cannot be used to diagnose any conditionunrelated to . If a B-hCG level is not supportedby the clinical evidence, results should be confirmed by analternative method (qualitative urine hCG, for example). Blood Venous blood specimen / Unknown 09/07/2024 3:53 PM EDT 09/07/2024 6:01 PM EDT Kade [facility] LAB BLOOD ORDERABLES Final Resul t Performing Organization Address [facility]/ZIP Co de Phone Number [facility] [address] [place] [phone] * HPV DNA, Low/High Risk (07/01/2024 2:10 PM EST) HPV High Risk Negative Negative [facility] HPV Genotype 16 Negative Negative [facility] HPV Genotype 18 Negative Negative [facility] Comment:HPV testing performe d at [facility] (CLIA#[id number]), [address] [place] [address].Testing for HPV was performed using the Andrew SALVADOR 6800system. The presence of HPV in the female [...] 2:10 PM EST 07/04/2024 8:20 AM EST Generic External Data Provider LAB BLOOD ORDERAB LES Final Result Performing Organization Address [facility]/ZIP Co de Phone Number [facility] [address] [place] [phone] * Pap Smear (07/01/2024 2:10 PM EST) 07/01/2024 2:10 PM EST 07/04/2024 8:20 AM EST Narrative [facility] - 07/09/2024 10:02 AM EST ----- ------- Name: Jackie Decker ?Age/Sex: 28/F ? : 1995 Unit#: [id number] ?? Attend Dr: Brandyn Molina MD ?Re07/01/24 ?Status: DEP REF ? Location: HO.LNP ?Disch: ? ----- ------- SPEC : [id number] ? RECD: 07/04/24 ? STATUS: ??SOUT ? REQ NUM: [id number] ? ROSSANA: 07/01/24-1410 ? SUBM DR: Brandyn Molina MD ? [...] Copies To: ?? KADE MARSHALL NP ?? [facility] ?? [address] [facility] [address] ?? [place] [address] ?? [phone] ?? Brandyn Molina MD ?? [facility] ?? [address] [facility] [address] ?? [place] [address] ?? [phone] ----- ------- Signed (signature on file) JIMMY James (ASCP) 07/09/24 1002 ? ----- ------- ? END OF REPORT ? Generic External Data Provider LAB CYTOLOGY ORDE RABLES Final Result Performing Organization Address [facility]/ZIP Co de Phone Number [facility] [address] [place] [phone] * HEPATITIS C AB W/REFL TO HCV RNA, QN, PCR (07/17/2021 3:06 PM EST) HEPATITIS C ANTIBODY NON-REACT SHARON NON-REACT SHARON [facility] INDEX 0.02 <1.00 [facility] Comment: ?? HCV antibody was non-reactive. There is no laboratory ?? evidence of HCV infection. ?? In most cases, no further action is required. However, if recent HCV exposure is suspected, a test for HCV RNA (test code 40462) is suggested. ?? For additional information please refer to http://education.[employer]/faq/LJD89j0 (This link is being provided for informational/ educational purposes only.) ?? 07/17/2021 3:06 PM EST [address] [facility] HISTORICAL/NON ORDERABLE LABS Final Result Performing Organization Address [facility] de Phone Number [facility] [address] * HIV 1/2 ANTIGEN/ANTIBODY,FOURTH GENERATION W/RFL (07/17/2021 3:06 PM EST) HIV-1/2 ANTIGEN AND ANTIBODIES, 4TH GENERATION W/ REFLEX NON-REACT SHARON NON-REACT [facility] Comment: HIV-1 antigen and HIV-1/HIV-2 [...] ? For additional information please refer to http://education.[employer]/faq/NNF198 (This link is being provided for informational/ educational purposes only.) ? The performance of this assay has not been clinically validated in patients less than 2 years old. ?? 07/17/2021 3:06 PM EST us Chantell Davies [facility] LAB BLOOD ORDERABLES Final Res ult [facility] [address] from Last 3 Months or Most Recently Relevant to Health Maintenance Insurance [facility] AD[facility] Care Teams Alley Tender Relationship Specialty Start Date End Date Kade Marshall ANP [address] [place] [phone] PCP - General Family Medicine 11/16/19
--- OUTSIDE RECORDS SUMMARY | 2024-09-20 10:07 | XMS_ITS | Encounter Summary ---
Author Organization [employer] Address [address] [facility] 7t [place] [address] Care Team Providers Care Aerospace Mechanic Name Role Phone Saloni Rodríguez Primary Care Provider [phone] Reason for Visit * Reason Onset Date Comments Nurse Triage 11/16/2023 Encounter Details Date Type Department Care Team ([facility] st Contact Info) Description 11/16/2023 Telephone [facility] MEDICINE [address] [place] [address] Saloni Rodríguez ANP [address] [place] [address] Nurse Triage Social History Tobacco Use Types [...] t he electric, gas, oil or water [employer] threatened to shut off services in your [...] office. Pt is advised to come to [facility] to be seen by provider. Hours given, open till 8pm this evening and 830am - 800pm / Thu. Pt reports will come to the [facility] in the next 2 days. [...] Description 09/29/2024 1:00 PM EDT Office Visit [facility] MEDICINE [address] [place] [address] Saloni Rodríguez ANP [address] [place] [address] 10/28/2024 11:00 AM EDT Office Visit [facility] OPTOMETRY [address] [place] [address] Sonya Liu, MATHEW [address] [place] [address] documented as of this encounter Visit Diagnoses Not on filedocumented in this encounter Care Teams Aerospace Mechanic Relationship Specialty Start Date End Date Saloni Rodríguez ANP [address] [place] [address] PCP - General Family Medicine 11/16/19 documented as of this encounter
== END 2024-09-20 09:18 | disposition home or self-care (01) ==
LOC: HO.MAMMO 09:17
PROVIDERS: PCP Nurse Practitioner Primary Care; Visit Provider Obstetrics & Gynecology
DX: N64.4 Mastodynia (principal); N64.52 Nipple discharge; R92.8 Other abnormal and inconclusive findings on diagnostic imaging of breast
CPT/HCPCS: 76642; 77062; 77066

== ENCOUNTER → 2024-09-20 09:30 | Outpatient (BNV) | payer MEDICAID, SELFPAY | PROVIDERS: PCP Nurse Practitioner Primary Care; Visit Provider Internal Medicine | DX: N64.52 Nipple discharge (principal) | CPT/HCPCS: 76642; 77062; 77066 ==

== ENCOUNTER 2024-10-27 13:35 | Emergency (ER) | payer MEDICAID, SELFPAY ==
[2024-10-27 13:39] VITALS: BP 145/77; PULSE 80; RESP 18; TEMP 36.6; O2SAT 98; BMI 30.8
--- NOTE | 2024-10-27 13:40 | ED.GIBLEED ---
HPI - GI Bleed General Chief complaint: General Medical Stated complaint: Rectal bleeding Time Seen by Provider: 10/27/24 15:56 Source: patient Mode of arrival: ambulatory Limitations: no limitations History of Present Illness ED Provider: Anh Boyer PA-C HPI Narrative: 29 yo female with history of abnormal uterine bleeding s/p IUD who presents to the ER for evaluation of rectal bleeding that started today around 05 23. Patient reports she had a normal bowel movement this morning and did not have any rectal bleeding at the time. She states when she went to use the bathroom around 12 30 and urinate, when she wiped she had bright red blood per rectum. She reports it was dripping out into the toilet bowl. She denied any associated rectal pain, abdominal pain. She denies bleeding from her vagina. She denies any history of rectal bleeding in the past. No rectal intercourse. Patient states she continued to have some oozing and has a pad on the area. She came to the ER for further evaluation. complaint: gross hematochezia Onset (ago): hour(s) Pain Consistency: constant Severity: moderate Relieving factors: none Exacerbating factors: none Associated symptoms: denies other symptoms Treatments Prior to Arrival: none Related Data Home Medications ?Medication ?Instructions ?Recorded ?Confirmed levonorgestrel 21 mcg/24 hr (up to intrauterine 12/03/22 8 years) 52 mg intrauterine device (Mirena) Previous Rx's ?Medication ?Instructions ?Recorded phenylephrine HCl 0.25 % rectal 1 supp VA BEDTIME PRN hemorrhoids 10/27/24 suppository #12 ea Allergies Allergy/AdvReac Type Severity Reaction Status Date / Time glatiramer (copolymer 1) Allergy Unknown anaphylaxis Verified 10/27/24 13:42 [Copaxone] No Known Allergies Allergy Verified 10/27/24 13:42 [No Known Allergies*] pollen Allergy Unknown snnezing Uncoded 10/27/24 13:42 Review of Systems Review of Systems: Yes all other systems are reviewed and are negative [facility] Past Medical History Medical History Asthma H/O bipolar disorder History of anxiety Multiple sclerosis Family History Family History Maternal Uncle Pancreatic cancer Social History Social History Alcohol intake: never Patient Tobacco Use Status: Never used Tobacco Substance Use Type: Marijuana Advance Directives: No Advance Directives Information Provided: Yes Do you have a plan to hurt others: No Plan Sexual orientation: Straight/Heterosexual Gender identity: Female Physical Exam Vital Signs: Vital Signs: Last Vital Signs Temp 98 F 10/27/24 13:39 Pulse 80 10/27/24 13:39 Resp 18 10/27/24 13:39 BP 145/77 H 10/27/24 13:39 Pulse Ox 98 10/27/24 13:39 O2 Del Method Room Air 10/27/24 13:39 BMI result Body Mass Index 30.8 Appearance: Alert. Oriented X3. No acute distress. HEENT: normal external inspection Neck: Normal inspection. CVS: Normal heart rate and rhythm. Respiratory: No respiratory distress. Breath sounds normal. Abdomen: Soft and nontender. +BS x4 BARBARA: There is a small, less than 1/2 cm fissure on the anus at 09:00, there is a small, nonthrombosed, external, nonbleeding hemorrhoid at 06:00. No palpable internal hemorrhoids or masses, no blood in the rectal vault Skin: Skin warm and dry. Normal skin color. Normal skin turgor. No rashes. Extremities: No lower extremity edema. No joint swelling. Neuro/psych: Oriented X 3. Grossly normal, nonfocal. Normal speech and cognition. Course Course Course Narrative: This is a Rapid Medical Exam performed in triage by Rochelle Frederick PA-C. Full HPI, ROS and PE to be performed by primary ED provider. 29 yo F w/pmhx hemorrhoids presenting to the ED c/o brbpr x ARCHITECTURAL EXAMINER while using the bathroom to urinate. States bleeding just started dripping out of her & she was not having BM, now wearing pad to rectum, denies rectal pain. Admits has hemorrhoid but is gone now. denies abd pain, lightheadedness/dizziness, AC use PE: nontoxic appearing, NAD, area not evaluated in triage Plan: Labs, UA, Occult stool Medical Decision Making Medical Decision Making MDM Narrative: 29-year-old otherwise healthy female presents to the ER for evaluation of rectal bleeding that started today around 12 30. She is requiring a sanitary pad for reported ongoing oozing. In the ER she is hemodynamically stable. Physical examination revealing for a small, subcentimeter, superficial anal fissure. She also has small nonbleeding hemorrhoid. No palpable rectal masses. Her lab work shows normal H&H. No active bleeding at this time. There was a small amount of blood on her sanitary pad. Patient counseled on management of anal fissures and hemorrhoids. Stable for discharge home. Return precautions were discussed. Differential Diagnosis Differential Diagnoses: The differential diagnosis associated with the presentation includes Internal hemorrhoids, external hemorrhoids, anal fissure, diverticular bleeding, brisk upper GI bleeding less likely, vaginal bleeding Admission/Observation Consideration of admission/observation: Escalation of care including admission/observation considered Lab Data MDM Lab Attestation statement: I reviewed the patient's lab results. No anemia no leukocytosis, normal platelet 10/27/24 13:57 10/27/24 13:57 Labs: Lab Results 10/27/24 10/27/24 Range/Units 13:57 15:44 WBC 9.2 (4.8-10.8) X10*3/uL RBC 4.46 (4.20-5.50) X10*6/uL Hgb 13.3 (12.0-16.0) g/dl Hct 39.8 (37.0-47.0) % MCV 89.2 (80.0-98.0) fL MCH 29.8 (27.0-33.0) pg MCHC 33.4 (31.0-35.0) g/dl RDW 12.7 (11.0-16.0) % Plt Count 316 (160-400) X10*3/uL MPV 9.2 L (9.4-12.3) fL Immature Gran % (Auto) 0.3 (0.0-0.4) % Neut % (Auto) 62.8 (45-73) % Lymph % (Auto) 27.2 (20-40) % Morton % (Auto) 5.3 (2-11) % Eos % (Auto) 3.6 (0-4) % Baso % (Auto) 0.8 (0-2) % Lymph # (Auto) 2.5 (1.2-4.9) X10*3/uL Morton # (Auto) 0.5 (0.1-1.2) X10*3/uL Eos # (Auto) 0.3 (0.0-0.4) X10*3/uL Baso # (Auto) 0.1 (0.0-0.2) X10*3/uL Abs Immat Gran (auto) 0.03 (0.00-0.03) X10*3/uL Absolute Neuts (auto) 5.8 (2.0-8.3) x10*3/uL Absolute Nucleated RBC 0.000 (0.0-0.012) X10*3/uL Nucleated RBC % (auto) 0.0 (0.0-0.2) /100WBC PT 10.2 L (10.9-12.4) SEC INR 0.9 (0.9-1.1) Sodium 142 (135-145) mmol/L Potassium 4.0 (3.3-5.1) mmol/L Chloride 106 (96-108) mmol/L Carbon Dioxide 29 (22-29) mmol/L Anion Gap 11 L (12-20) BUN 14 (9-16) mg/dL Creatinine 0.72 (0.5-1.4) mg/dL Estim Creat Clear Calc 104.0 Estimated GFR > 60 Random Glucose 89 (60-115) mg/dL Calcium 10.1 (8.4-10.2) mg/dL Magnesium 1.8 (1.6-2.6) mg/dL Total Bilirubin 0.2 (0.0-1.0) mg/dL Direct Bilirubin < 0.2 (0.0-0.5) mg/dL AST 23 (5-31) U/L ALT 27 (0-31) U/L Alkaline Phosphatase 81 (39-117) U/L Total Protein 8.0 (6.5-8.0) g/dL Albumin 4.3 (3.5-5.0) g/dL Urine Color Yellow Urine Appearance Clear Urine pH 6.0 (5.0-9.0) Ur Specific [place] 1.010 (1.005-1.025) Urine Protein Negative (Neg-Trace) mg/dL Urine Glucose (UA) Negative (Negative) mg/dL Urine Ketones Negative (Negative) mg/dL Urine Blood Large (3+) H (Negative) Urine Nitrite Negative (Negative) Ur Leukocyte Esterase Trace H (Negative) Urine RBC 0-2 (0-2) /HPF Urine WBC 0-5 (0-5) /HPF Ur Squamous Epith Cells 3-5 (0-2) /HPF Urine Bacteria 1+ (None Seen) Hyaline Casts 0-2 (0-2) /LPF Urine Test NEGATIVE (NEGATIVE) Tests considered The following testing was considered but not selected: CT GI bleed scan protocol considered however no active bleeding at this time and physical exam consistent with anal fissure and hemorrhoids Prescription Management I considered prescription management with: Other (Hydrocortisone suppository) Critical Care Time Critical Care Time Critical Care Time: No Discharge Plan Discharge Clinical Impression: Acute anal fissure Patient Disposition: Home, Self-Care Instructions: Anal Fissure (ED) Additional Instructions: Your exam was consistent with a small tear/fissure of your anus. These can bleed very easily. The bleeding has stopped now. Your blood counts were normal, no anemia. You also have small, nonbleeding hemorrhoids. Use the prescribed suppositories to help shrink the blood vessels and shrink the he has hemorrhoids. Avoid constipation and take an [id number] stool softener like Colace. Increase the fiber in your diet. Follow-up with your doctor as needed. Prescriptions: New phenylephrine HCl 0.25 % suppository 1 supp VA BEDTIME PRN (Reason: hemorrhoids) Qty: 12 0RF No Action Mirena 21 mcg/24 hours (8 yrs) 52 mg intrauterine device intrauterine Print Language: Turkish
[2024-10-27 14:03] LABS: MANUAL DIFF FLAG NO
[2024-10-27 14:04] LABS: Basophils Absolute Auto 0.1 X10*3/uL (0.0-0.2); Basophils Percent Auto 0.8 % (0-2); Eosinophils Absolute Auto 0.3 X10*3/uL (0.0-0.4); Eosinophils Percent Auto 3.6 % (0-4); Hematocrit 39.8 % (37.0-47.0); Hemoglobin 13.3 g/dl (12.0-16.0); Imm Gran Abs Auto 0.03 X10*3/uL (0.00-0.03); Imm Gran Pct Auto 0.3 % (0.0-0.4); Lymphocytes Absolute Auto 2.5 X10*3/uL (1.2-4.9); Lymphocytes Percent Auto 27.2 % (20-40); Mean Corpuscular HGB Conc 33.4 g/dl (31.0-35.0); Mean Corpuscular Hemoglobin 29.8 pg (27.0-33.0); Mean Corpuscular Volume 89.2 fL (80.0-98.0); Mean Platelet Volume 9.2 fL (9.4-12.3); Monocytes Absolute Auto 0.5 X10*3/uL (0.1-1.2); Monocytes Percent Auto 5.3 % (2-11); Neutrophils Absolute Auto 5.8 x10*3/uL (2.0-8.3); Neutrophils Percent Auto 62.8 % (45-73); Platelet Count 316 X10*3/uL (160-400); Red Blood Count 4.46 X10*6/uL (4.20-5.50); Red Cell Distribution Width 12.7 % (11.0-16.0); White Blood Count 9.2 X10*3/uL (4.8-10.8)
[2024-10-27 14:11] LABS: INTERNATIONAL NORM RATIO 0.9 (0.9-1.1); Prothrombin Time 10.2 SEC (10.9-12.4)
[2024-10-27 14:19] LABS: Alanine Aminotransferase 27 U/L (0-31); Albumin Level 4.3 g/dL (3.5-5.0); Alkaline Phosphatase 81 U/L (39-117); Anion Gap 11 (12-20); Aspartate Amino Transferase 23 U/L (5-31); Bilirubin Direct < 0.2 mg/dL (0.0-0.5); Bilirubin Total 0.2 mg/dL (0.0-1.0); Blood Urea Nitrogen 14 mg/dL (9-16); Calcium 10.1 mg/dL (8.4-10.2); Carbon Dioxide 29 mmol/L (22-29); Chloride 106 mmol/L (96-108); Estimated Glomerular Filt Rate > 60; Glucose Random 89 mg/dL (60-115); Magnesium 1.8 mg/dL (1.6-2.6); Sodium 142 mmol/L (135-145)
[2024-10-27 15:51] LABS: Appearance Urine Clear; Color Urine Yellow; Glucose Urine UA Negative (Negative); Leukocyte Esterase Urine Trace (Negative); Nitrite Urine Negative (Negative); UMIC TRIGGER UACC YES; Urine Blood Large (3+) (Negative); Urine Ketones Negative (Negative); Urine Protein Negative (Neg-Trace)
[2024-10-27 15:52] LABS: UPreg QC Valid YES; Urine Pregnancy NEGATIVE (NEGATIVE)
[2024-10-27 16:06] LABS: Bacteria Urine 1+ (None Seen); Hyaline Casts Urine 0-2 /LPF (0-2); RBC Urine 0-2 /HPF (0-2); WBC Urine 0-5 /HPF (0-5)
[2024-10-27 16:29] VITALS: BP 129/66; PULSE 70; RESP 16; TEMP 36.6; O2SAT 97
--- OUTSIDE RECORDS SUMMARY | 2024-10-27 18:11 | XMS_ITS | Encounter Summary ---
Author Organization [employer] Address [address] [facility] 7t [place] [address] Care Team Providers Care Process Supervisor Name Role Phone Saloni Rodríguez Primary Care Provider [phone] Reason for Visit * Reason Onset Date Comments Nurse Triage 11/16/2023 Encounter Details Date Type Department Care Team ([facility] st Contact Info) Description 11/16/2023 Telephone [facility] MEDICINE [address] [place] [address] Saloni Rodríguez ANP [address] [place] [address] Nurse Triage Social History Tobacco Use Types [...] office. Pt is advised to come to [facility] to be seen by provider. Hours given, open till 8pm this evening and 830am - 800pm / Thu. Pt reports will come to the [facility] in the next 2 days. Pt is [...] become worse * Telephone Encounter - Edward Sanya - 11/16/2023 4:41 PM EDT Symptom: Leg Swelling - Not From Injury Outcome: Schedule an urgent appointment (within 1 hour) or talk to a nurse or provider soon Reason: Severe leg pain now documented in this encounter Plan of Treatment Upcoming Encounters Date Type Department Care Team (Late st Contact Info) Description 10/28/2024 11:00 AM EDT Office Visit [facility] OPTOMETRY [address] [place] [address] Sonya Liu, OD [address] [place] [address] 11/17/2024 10:30 AM EDT Office Visit [facility] ADULT DENTAL [address] [place] [address] Ancelmo Rivera DDS [address] [place] [address] 01/09/2025 3:30 PM EDT Office Visit [facility] MEDICINE [address] [place] [address] Saloni Rodríguez ANP [address] [place] [address] documented as of this encounter Visit Diagnoses Not on filedocumented in this encounter Care Teams Process Supervisor Relationship Specialty Start Date End Date Saloni Rodríguez ANP [address] [place] [address] PCP - General Family Medicine 11/16/19 documented as of this encounter
== END 2024-10-27 16:30 | disposition home or self-care (01) ==
PROVIDERS: Physician Assistant; Emergency Provider Emergency Medicine Emergency Medical Services
DX: K60.2 Anal fissure, unspecified (principal); K92.1 Melena; Z79.899 Other long term (current) drug therapy
CPT/HCPCS: 36415; 80048; 80076; 81001; 81025; 83735; 85025; 85610; 99283; 99284

== ENCOUNTER 2024-12-01 13:46 | Outpatient (AMB) | payer MEDICAID, SELFPAY ==
--- OUTSIDE RECORDS SUMMARY | 2024-12-01 13:49 | XMS_ITS | Encounter Summary ---
Author Organization [employer] Address [address] [facility] 7t [place] [address] Care Team Providers Care Solid Waste Manager Name Role Phone Saloni Rodríguez Primary Care Provider [phone] Reason for Visit * Reason Onset Date Comments Nurse Triage 11/16/2023 Encounter Details Date Type Department Care Team ([facility] st Contact Info) Description 11/16/2023 Telephone [facility] MEDICINE [address] [place] [address] Saloni Rodríguez ANP [address] [place] [address] Nurse Triage Social History Tobacco Use Types [...] office. Pt is advised to come to [facility] to be seen by provider. Hours given, open till 8pm this evening and 830am - 800pm / Thu. Pt reports will come to the [facility] in the next 2 days. Pt is [...] Care Team (Late st Contact Info) Description 01/09/2025 3:30 PM EDT Office Visit [facility] MEDICINE [address] [place] [address] Saloni Rodríguez ANP [address] [place] [address] documented as of this encounter Visit Diagnoses Not on filedocumented in this encounter Care Teams Solid Waste Manager Relationship Specialty Start Date End Date Saloni Rodríguez ANP [address] [place] [id number] PCP - General Family Medicine 11/16/19 documented as of this encounter
--- NOTE | 2024-12-01 13:55 | A.OFFVIS_ITS ---
Intake Visit Reasons: Bleeding with IUD/cramping Accompanied by: Self / Same As Patient Allergies glatiramer (copolymer 1) (Copaxone) Allergy (Unknown, Verified 12/01/24 13:55) anaphylaxis No Known Allergies (No Known Allergies*) Allergy (Verified 12/01/24 13:55) pollen Allergy (Unknown, Uncoded 10/27/24 13:42) snnezing HPI Comments Details: Presenting complaining of pelvic pain over the last 3 weeks, the pain is bilateral not associated with any bleeding, no urinary or GI symptoms, no vaginal discharge, no nausea or vomiting [facility] Medical History Asthma H/O bipolar disorder History of anxiety Multiple sclerosis Family History Maternal Uncle Pancreatic cancer Social History Alcohol intake: never Patient Tobacco Use Status: Never used Tobacco Substance Use Type: Marijuana Sexual orientation: Straight/Heterosexual Gender identity: Female Female Reproductive History Menstrual Age of Menarche: 10 Review of Systems Const All systems reviewed & are unremarkable except as noted in HPI and below Physical Exam General: Yes no CVA tenderness External Female Exam: normal external appearance and normal appearance of the urethra Speculum Exam - Vagina: normal appearance of the vagina, normal palpation, no lesions and no masses Speculum Exam - Cervix: normal appearance of the cervix, normal palpation, no lesions, no masses, nontender and Other cervical findings present (IUD string in place) Bimanual exam- vagina & uterus: normal bimanual exam, normal palpation, uterine size normal, normal palpation, uterine shape normal, No Cervical tenderness present and non-tender Bimanual Exam- Adnexa, other: normal adnexae Back/Spine/Pelvis Back: no CVA tenderness Assessment & Plan Assessment & Plan (1) Pelvic pain: Comment: With Mirena IUD Code(s): R10.2 - Pelvic and perineal pain Category: Medical Plan: Urine dip and test done in the office were both negative. GC and chlamydia taken and pelvic ultrasound ordered. Discussed with the patient the differential diagnosis of pelvic pain including but not limited to adnexal, uterine masses, pelvic infections (PID), GI the (Irritable bowel syndrome, diverticulitis, others), musculoskeletal, myofascial pain abdominal wall , adhesions, endometriosis, psychological and others causes. Will check results and treat accordingly. All questions answered, the patient verbalized understanding. Instructed the patient to schedule an ultrasound and a follow-up appointment in 2 weeks. All questions answered, the patient verbalized understanding and agreed with the plan. Orders: Orders US pelvic and transvaginal Today R10.2 - Pelvic and perineal pain Coding Level of Care Code Est Pt Level 3 (58023) Diagnoses Pelvic pain R10.2
== END 2024-12-01 14:09 | disposition home or self-care (01) ==
LOC: HO.HWS 13:46
PROVIDERS: Visit Provider Obstetrics & Gynecology
DX: R10.2 Pelvic and perineal pain (principal)
CPT/HCPCS: 99213

== ENCOUNTER 2024-12-01 13:46 | Outpatient (REF) | payer MEDICAID, SELFPAY ==
[2024-12-01 16:26] LABS: Bacterial Vaginosis PCR POSITIVE (Negative); Candida Group PCR NOT DETECTED (Not Detect); Candida glab krusei PCR NOT DETECTED (Not Detect); Trichomonas vaginalis PCR NOT DETECTED (Not Detect)
[2024-12-01 16:55] LABS: CT PCR NOT DETECTED (Not Detect.); NG PCR NOT DETECTED (Not Detect.)
== END 2024-12-01 13:47 | disposition home or self-care (01) ==
LOC: HO.LNP 13:46
PROVIDERS: Visit Provider Obstetrics & Gynecology
DX: R10.2 Pelvic and perineal pain (principal); N93.9 Abnormal uterine and vaginal bleeding, unspecified
CPT/HCPCS: 81515; 87491; 87591; 99212

== ENCOUNTER 2024-12-05 14:14 | Outpatient (REF) | payer MEDICAID, SELFPAY ==
--- OUTSIDE RECORDS SUMMARY | 2024-12-02 10:00 | XMS_ITS | Encounter Summary ---
Author Organization [employer] Address [address] [facility] 7t [place] [address] Care Team Providers Care Vascular Ultrasound Technician Name Role Phone Anne Saloni KUNZ Primary Care Provider Encounter Details Date Type Department Care Team ([facility] st Contact Info) Description 12/02/2024 10:00 AM EDT Office Visit [facility] OPTOMETRY [address] [place] [address] Noe, Sonya, OD [address] [place] [address] Myopia of both eyes (Primary Dx) Social History Tobacco Use Types Packs/Day Years [...] AM EDT documented as of this encounter Progress Notes * Sonya Liu OD - 12/02/2024 10:00 AM EDT MH glasses were dispensed. documented in this encounter Plan of Treatment Upcoming Encounters Date Type Department Care Team (Late st Contact Info) Description 01/09/2025 3:30 PM EDT Office Visit [facility] MEDICINE [address] [place] [address] Saloni Rodríguez ANP [address] [place] [address] documented as of this encounter Visit Diagnoses Diagnosis Myopia of both eyes- Primary documented in this encounter Additional Health Concerns Assessment Noted Time PHQ-9 Depression Total Score: 7 12/10/19 24 12:13 PM EDT documented as of this encounter Care Teams Vascular Ultrasound Technician Relationship Specialty Start Date End Date Saloni Rodríguez ANP [address] [place] [id number] PCP - General Family Medicine 11/16/19 documented as of this encounter
[2024-12-06 08:07] LABS: Syphilis Screen Nonreactive (Nonreactive)
[2024-12-06 08:14] LABS: HBsAGNum1 0.41 S/CO (0.00-0.99); HIV Num 1 0.06 S/CO (0.00-0.99); Hepatitis B Surface Antigen Negative (Negative); ~HepC Num1 0.13 S/CO (0.00-0.79); ~Hepatitis C Antibody Nonreactive (Nonreactive)
== END 2024-12-05 14:15 | disposition home or self-care (01) ==
LOC: HO.HHCL 14:14
PROVIDERS: PCP Nurse Practitioner Primary Care; Visit Provider Obstetrics & Gynecology
DX: Z11.4 Encounter for screening for human immunodeficiency virus [HIV] (principal); Z11.59 Encounter for screening for other viral diseases; N76.0 Acute vaginitis; B96.89 Other specified bacterial agents as the cause of diseases classified elsewhere
CPT/HCPCS: 36415; 86780; 86803; 87340; 87389

== ENCOUNTER 2024-12-13 10:14 | Outpatient (AMB) | payer MEDICAID, SELFPAY ==
[2024-12-13 10:23] VITALS: BMI 38.7
--- NOTE | 2024-12-13 10:23 | A.OFFVIS_ITS ---
Vital Signs 12/13/24 10:23 Height 5 ft 1 in Weight 205 lb BMI 38.7 Intake Visit Reasons: IUD removal Matchbook Maker Required: No Information Interpreted: non-clinical & clinical Chairman & Co Founder: Chairman & Co Founder Present (Phuong HOOD) Accompanied by: Self / Same As Patient Allergies glatiramer (copolymer 1) (Copaxone) Allergy (Unknown, Verified 12/13/24 10:31) anaphylaxis No Known Allergies (No Known Allergies*) Allergy (Verified 12/13/24 10:31) pollen Allergy (Unknown, Uncoded 12/13/24 10:31) snnezing Is last menstrual period known: No (mirena) HPI Comments Details: Presenting requesting IUD removal [facility] Medical History Asthma H/O bipolar disorder History of anxiety Multiple sclerosis Family History Maternal Uncle Pancreatic cancer Social History Alcohol intake: never Patient Tobacco Use Status: Never used Tobacco Substance Use Type: Marijuana Sexual orientation: Straight/Heterosexual Gender identity: Female Female Reproductive History Menstrual Age of Menarche: 10 Physical Exam Vital Signs: BMI result Body Mass Index 38.7 Office Procedures IUD Insert/Removal Details Details: Counseling/Consent: After discussing with the patient the risks of the procedure including bleeding, infection, scar tissue formation, , possible injury to blood vessels or nerves, chronic arm pain, blood transfusion, and irregular unpredictable bleeding Alternative options were discussed with the patient including but not limited: Do nothing. The patient signed the consent and agreed with the plan; all questions answered. Urine test was done in the office and was negative Preop dx: Requesting IUD removal Op: IUD removal Post op dx: same EBL= 10 cc Procedure: The patient was put in the dorsal lithotomy position a speculum was inserted in the vagina the IUD thread identified. Using a Adriana clamp the thread was grasped and the IUD pulled out with no complications. The patient tolerated the procedure well and was advised to use a different method for contraception. Discharge instructions: Instructions were given to the pt to call if temp>100.4, abdominal pain heavy vaginal bleeding, n/v occur. The patient verbalized understanding and all questions answered. This note was generated with a voice recognition program. Some errors may have been overlooked during the review of this note. Sometimes these errors may affect the content or meaning of a given sentence. 11637-RCE Removal Procedure code (CPT) selection complete Results AMB Test Urine AMB Test Urine Negative Last Edit by Phuong Amaral CMA on 10:32 Results Reviewed Results Reviewed: Laboratory Last Values [facility] Clinic Negative 12/13/24 10:32 Assessment & Plan Assessment & Plan (1) Encounter for IUD removal: Code(s): Z30.432 - Encounter for removal of intrauterine contraceptive device Category: Medical Plan: Mirena IUD removed, see procedure note (2) Family planning: Code(s): Z30.09 - Encounter for other general counseling and advice on contraception Category: Social Hx Plan: Discussed with the patient the different options of control including control pills/Nuvaring, Depo Medroxy Progesterone Acetate, IUD ( levonorgestrel, Copper), sterilization. All the pros, cons, risks and benefits of each were discussed with the patient. The patient decided to go ahead with [facility] so a more detailed discussion re: control pills including mechanism of action, benefits (regular menses, less dysmenorrhea, less risk of ovarian cancer, ...), risks ( DVT, PE, Strokes, OK, increased breast ca, others). Instructions were given to use a back- up method for contraception x 1st 2 weeks, and to schedule a 3 months appointment for blood pressure check Orders: Orders AMB HCG Urine Test Today Z32.02 - Encounter for test, result negative Medications: New desogestrel-ethinyl estradiol 0.15-0.03 mg (Apri) 1 tab PO DAILY 28 tabs 2RF 28 days Coding Level of Care Code Est Pt Level 3 (11986) Procedure Only Diagnoses Encounter for IUD removal Z30.432 Family planning Z30.09 CPT Codes Details - CPT: 78121-ALH Removal ([id number])
--- OUTSIDE RECORDS SUMMARY | 2024-12-13 11:19 | XMS_ITS | Encounter Summary ---
Author Organization [employer] Address [address] [facility] 7t [place] [address] Care Team Providers Care Kiss Mixer Name Role Phone Saloni Rodríguez Primary Care Provider [phone] Reason for Visit * Reason Onset Date Comments Nurse Triage 11/16/2023 Encounter Details Date Type Department Care Team ([facility] st Contact Info) Description 11/16/2023 Telephone [facility] MEDICINE [address] [place] [address] Saloni Rodríguez ANP [address] [place] [address] Nurse Triage Social History Tobacco Use Types [...] office. Pt is advised to come to [facility] to be seen by provider. Hours given, open till 8pm this evening and 830am - 800pm / Thu. Pt reports will come to the [facility] in the next 2 days. Pt [...] Description 01/09/2025 3:30 PM EDT Office Visit [facility] MEDICINE [address] [place] [address] Saloni Rodríguez ANP [address] [place] [address] documented as of this encounter Visit Diagnoses Not on filedocumented in this encounter Care Teams Kiss Mixer Relationship Specialty Start Date End Date Saloni Rodríguez ANP [address] [place] [address] PCP - General Family Medicine 11/16/19 documented as of this encounter
== END 2024-12-13 10:42 | disposition home or self-care (01) ==
LOC: HO.HWS 10:15
PROVIDERS: Visit Provider Obstetrics & Gynecology
DX: Z30.432 Encounter for removal of intrauterine contraceptive device (principal); Z30.09 Encounter for other general counseling and advice on contraception; Z32.02 Encounter for pregnancy test, result negative
CPT/HCPCS: 58301

== ENCOUNTER → 2024-12-13 10:14 | Outpatient (BNVA) | payer MEDICAID, SELFPAY | PROVIDERS: Visit Provider Obstetrics & Gynecology | DX: Z30.432 Encounter for removal of intrauterine contraceptive device (principal); Z32.02 Encounter for pregnancy test, result negative | CPT/HCPCS: 58301; 81025 ==

== ENCOUNTER 2025-02-10 12:11 | Outpatient (REF) | payer MEDICAID, SELFPAY ==
--- OUTSIDE RECORDS SUMMARY | 2025-02-10 11:30 | XMS_ITS | Encounter Summary ---
Author Organization [employer] Address [address] [facility] [address] [place] [address] Care Team Providers Care Corporate Intern Name Role Phone Saloni Rodríguez Primary Care Provider Reason for Visit * Reason Comments sick onsite visit Patient will like to discuss rash on right wrist and left ankle, heel pain right foot that goes up to calf and will like to discuss weight gain. Encounter Details Date Type Department Care Team (Late st Contact Info) Description 02/10/2025 11:30 AM EDT Office Visit [facility] MEDICINE [address] [place], [place] [phone] Saloni Rodríguez ANP [address] [place], [place] [phone] Fatigue, unspecified type (Primary Dx); Weight gain; Rash; Non-seasonal allergic rhinitis, unspecified trigger; Mild intermittent asthma without complication Social History Tobacco Use Types Packs/Day Years Used Date Smoking Tobacco: Never Smokeless Tobacco: Never Tobacco Cessation:Counseling Given: Not Answered Alcohol Use Standard Drinks/Week Comments Not Currently 0 (1 standard drink = 0.6 oz pur e alcohol) Depression Answer Date Recorded Patient Health Questionnaire-9 Score 5 02/10/2025 Patient Health Questionnaire-9 Score 5 02/10/2025 Last PHQ-9: Questionnaire Data Not on file 0 02/10/2025 Housing Stability Answer Date Recorded What is [...] the past 12 months, has t he [employer], gas, oil or water [employer] threatened to shut off services in your home? No 03/23/2024 Depression Answer Date Recorded Patient Health Questionnaire-2 Score 2 02/10/2025 Internet Access Answer Date Recorded Internet Access Q1 Yes 03/23/2024 Internet Access Q2 Not on file 03/23/2024 Comments Unknown Sex and Gender Information Value Date Recorded Sex Assigned at Female 03/24/2022 10:15 AM EDT Legal Sex Female 10:15 AM EDT Gender Identity Female 03/24/2022 10:15 AM EDT Sexual Orientation Straight 03/24/2022 10 :15 AM EDT documented as of this encounter Last Filed Vital Signs Vital Sign Reading Time Taken Comments Blood Pressure 110/80 02/10/2025 11:32 AM EDT Pulse 92 02/10/2025 11:32 AM EDT Temperature 36.3 C (97.4 F) 02/10/2025 11:32 AM EDT Respiratory Rate 20 02/10/2025 11:32 AM EDT Oxygen Saturation - - Inhaled Oxygen Concentration - - Weight 99.3 kg (219 lb) 02/10/2025 11:32 AM EDT Height 154.9 cm (5' 1 ) 02/10/2025 11:32 AM EDT Body Mass Index 41.38 02/10/2025 11:32 AM EDT documented in this encounter Functional Status * Over the past 2 weeks, how often have you been bothered by any of the following problems? Question Answer Date of Assessment Author Patient Health Questionnaire -2 Score 2 02/10/2025 12:15 PM EDT Ramona Castanon MA * Little interest or pleasure in doing things Answer Date of Assessment Author Several days 02/10/2025 12:15 PM EDT Ramona Castanon MA * Feeling down, depressed, or hopeless Answer Date of Assessment Author Several days 02/10/2025 12:15 PM EDT Ramona Castanon MA * Trouble falling or staying asleep, or sleeping too much Answer Date of Assessment Author Not at all 02/10/2025 12:15 PM EDT Ramona Castanon MA * Feeling tired or having little energy Answer Date of Assessment Author Several days 02/10/2025 12:15 PM EDT Ramona Castanon MA * Poor appetite or overeating Answer Date of Assessment Author Several days 02/10/2025 12:15 PM EDT Ramona Castanon MA * Feeling bad about yourself - or that you are a failure or have let yourself or your family down Answer Date of Assessment Author Several days 02/10/2025 12:15 PM EDT Ramona Castanon MA * Trouble concentrating on things, such as reading the newspaper or watching television Answer Date of Assessment Author Not at all 02/10/2025 12:15 PM EDT Ramona Castanon MA * Moving or speaking so slowly that other people could have noticed? Or the opposite - being so fidgety or restless that you have been moving around a lot more than usual. Answer Date of Assessment Author Not at all 02/10/2025 12:15 PM Ramona Ferreira MA * Thoughts that you would be better off or hurting yourself in some way Answer Date of Assessment Author Not at all 02/10/2025 12:15 PM OSCART Ramona Castanon MA * Patient Health Questionnaire-9 Score Answer Date of Assessment Author 5 02/10/2025 12:15 PM EDT Ramona Castanon MA * How difficult have these problems made it for you to do your work, take care of things at home, or get along with other people? Answer Date of Assessment Author Not difficult at all 02/10/2025 12:15 PM OSCART Ramona Gould MA * Over the last 2 weeks, how often have you been bothered by any of the following problems? Question Answer Date of Assessment Author Feeling nervous, anxious, or on edge 1 02/10/2025 12:16 PM EDT Ramona Castanon MA Not being able to stop or co ntrol worrying 1 02/10/2025 12:16 PM EDT Ramona Castanon MA Worrying too much about diff erent things 1 02/10/2025 12:16 PM EDT Ramona Castanon MA Trouble relaxing 1 02/10/2025 12:16 PM EDT Ramona Castanon MA Being so restless that it is hard to sit still 0 02/10/2025 12:16 PM EDT Ramona Castanon MA Becoming easily annoyed or irritable 1 02/10/2025 12:16 PM EDT Ramona Castanon MA Feeling afraid as if somethi ng awful might happen 0 02/10/2025 12:16 PM EDT Ramona Castanon MA ALFONSO-7 Total Score 5 02/10/2025 12:16 PM EDT Ramona Castanon MA documented as of this encounter Plan of Treatment Scheduled Orders Name Type Priority Associated Diagnoses Orde r Schedule TSH W/Reflex to FT4 Lab Routine Weight gain Expected: 02/10/2025 (Approximate), Expires: 02/10/2026 CBC auto differential Lab Routine Fatigue, unspecified type Weight gain Expected: 02/10/2025 (Approximate), Expires: 02/10/2026 Iron And Total Iron Binding Capacity Lab Routine Weight gain Expected: 02/10/2025, Expires: 02/10/2026 documented as of this encounter Visit Diagnoses Diagnosis Fatigue, unspecified type- Primary Weight gain Other symptoms concerning nutrition, metabolism, and development Rash Rash and other nonspecific skin eruption Non-seasonal allergic rhinitis, unspecified trigger Mild intermittent asthma without complication documented in this encounter Additional Health Concerns Assessment Noted Time PHQ-9 Depression Total Score: 5 02/11/20 25 12:15 PM EDT documented as of this encounter Care Teams Corporate Intern Relationship Specialty Start Date End Date Saloni Rodríguez ANP [address] [place] [address] PCP - General Family Medicine 11/16/19 documented as of this encounter
--- OUTSIDE RECORDS SUMMARY | 2025-02-10 12:26 | XMS_ITS | Clinical Summary ---
Author Organization [employer] Address [address] [facility] 7 [place] [address] Care Team Providers Care News Anchor Name Role Phone Kade Marshall ZE Primary Care Provider Allergies Active Allergy Reactions Criticality Noted Date Comments Glatiramer Acetate Unknown 02/20/2023 Dust Mite Extract 12/08/2022 Other reaction(s): nasal congestion Medications * This document contains information received from the source organization and may not represent a complete record from that organization. 27-1 MG tablet Take 1 tablet by mouth in the morning. 023 Active naproxen (Naprosyn) 500 MG tablet TAKE 1 TABLET BY MOUTH TWICE DAILY IN THE MORNING AND AT BEDTIME NEEDED FOR MILD PAIN 40 tablet 1 024 Active albuterol 108 (90 Base) MCG/ACT inhalerIndicati ons:Mild intermittent reactive airway disease without complication INHALE 2 PUFFS BY MOUTH EVERY 6 HOURS NEEDED FOR WHEEZING 18 g 1 025 Active Juleber 0.15-30 MG-MCG tablet Take 1 tablet by mouth Once per day. 025 Active fexofenadine (Tracy) 180 MG tabletIndicatio ns:Non-seasonal allergic rhinitis, unspecified trigger Take 1 tablet (180 mg) by mouth if needed each day (Allergies). 90 tablet 2 025 Active triamcinolone (Kenalog) 0.1 % creamIndication s:Rash Apply topically 2 times daily. 30 g 025 Active Levonorgestrel (Mirena, 52 MG,) 20 MCG/DAY intrauterine device by Intrauterine route. 2024 Discontinued cetirizine (ZyrTEC) 10 MG tabletIndicatio ns:Non-seasonal allergic rhinitis, unspecified trigger Take 1 tablet (10 mg) by mouth Once per day. As needed for allergies 90 tablet 1 024 2024 Discontinued(I neffective) Active Problems Problem Noted Date Diagnosed Date [...] intervention , Patient to [facility] out to [facility] as needed, Patient to engage in [...] , Patient to reach out to [facility] team as needed, Patient to engage in OP therapy , and Patient to reach out to [facility] as needed Pelvic pain in female 09/14/2023 Assessment & Plan (09/14/2023 1:17 PM EDT): Intermittent sx, ?related to dysmenorrhea vs pelvic congestion syndrome, HCG negative -pelvic US with dilated parametrial vessels, o/w nml AUG 2023 -reviewed US results with pt -trial naprosyn prn -advised keep log of sx -advised RTC or contact [employer]IAN if sx worsen Chronic diarrhea 09/14/2023 Assessment [...] Encounters Date Type Department Care Team Description 02/10/2025 11:30 AM EDT Office Visit [facility] MEDICINE [address] [place] [address] [phone] Kade Marshall, ANP Fatigue, unspecified type (Primary Dx); Weight gain; Rash; Non-seasonal allergic rhinitis, unspecified trigger; Mild intermittent asthma without complication 02/10/2025 Travel 02/09/2025 Travel 02/09/2025 Telephone [facility] MEDICINE [address] [place] [address] Kade Marshall ANP chart prep 02/03/2025 Telephone [facility] MEDICINE [address] [place] [address] Kade Marshall ANP Appointment Request 01/06/2025 Telephone [facility] MEDICINE [address] [place] [address] Kade Marshall ANP chart prep 01/02/2025 Travel 12/02/2024 10:00 AM EDT Office Visit [facility] OPTOMETRY [address] [place] [address] NoeSonya carr, OD Myopia of both eyes (Primary Dx) from Last 3 Months Immunizations Immunization Administration Dates Next Due DTaP 02/08/1998, 5,10/07/1994,03/18,01/03/1994 HPV, Quadrivalent 12/13/2007,02/04/2007,12/05/19 07 Hep B, Adolescent or Pediatric 10/07/1994,1993,1993 Hib ([facility]) 04/21/1995, 5,03/18/1994,01/03 IPV 02/08/1998, 5,03/18/1994,01/03 Influenza, seasonal, injecta ble, preservative free 04/01/2024 MMR 02/08/1998,01/06/1995 Meningococcal MPSV4 12/03/2005 Pneumococcal Conjugate PCV 20 02/10/2025 TD (adult), 2 Lf tetanus tox oid, [...] 20 02/10/2025 11:32 AM EDT Oxygen Saturation 98% 04/01/2024 2:04 PM EST Inhaled Oxygen Concentration - - Weight 99.3 kg (219 lb) 02/10/2025 11:32 AM EDT Height 154.9 cm (5' 1 ) 02/10/2025 11:32 AM EDT Body Mass Index 41.38 02/10/2025 11:32 AM EDT Plan of Treatment Health Maintenance Due Date Last Done Comments Dental Oral Exam 1993 Dental Prophylaxis 1993 Dental X-Ray: Bitewings 1993 Family Planning (PISQ) 2008 Depression Screening 12/09/2024 12/10/2023, 12/10/19 24 COVID-19 Vaccine ( season) 2025 Influenza Vaccine (#1) 2025 04/01/2024 SDOH Screening 03/23/2025 03/23/2024 Alcohol/Substance Use Screening 04/01/2025 04/01/2024 Cervical Cancer Screening 07/01/2025 Pap Smear 07/01/2025 07/01/2024, 08/0 07/2022, 02/01/2022 Disability Screening 01/02/2026 01/02/2025 Tobacco Screening 02/10/2026 02/10/2025 Dental X-Ray: Full Mouth 02/08/2027 02/08/2024 HPV/Cotest [...] Completed 12/13/2007, 01/23, 12/04/2006 HIV Screening Completed 12/05/2024, 07/17/2021 Hepatitis C Screening Completed 12/05/2024, 022 Pneumococcal Vaccine: Pediatrics (0 to 5 Years) and At-Risk Patients (6 to 49) Years Completed 02/10/2025 Hepatitis A Vaccines Aged Out No long er eligible based on patient's age to complete this topic Meningococcal B Vaccine Aged Out No l onger eligible based on patient's age to complete this topic RSV under 20 months Aged Out No longe r eligible based on patient's age to complete this topic Rotavirus Vaccines Aged Out No longer eligible based on patient's age to complete this topic Procedures Procedure Name Priority Date/Time Associated Diagnosis Comments HEPATITIS B SURFACE ANTIGEN, EIA Routine 12/05/2024 2:20 PM EDT HIV 1/2 ANTIGEN/ANTIBODY, FOURTH GENERATION W/RFL Routine 12/05/2024 2:20 PM EDT HEPATITIS C ANTIBODY Routine 12/05/2024 2:20 PM EDT SYPHILIS SCREEN Routine 12/05/2024 2:20 PM EDT CHLAMYDIA/N. GONORRHOEAE RNA, TMA, UROGENITAL Routine 12/01/2024 1:46 PM EDT BACTERIAL VAGINOSIS PANEL Routine 12/01/2024 1:46 PM EDT HPV DNA, LOW/HIGH RISK Routine 07/01/2024 2:10 PM EST PAP SMEAR Routine 07/01/2024 2:10 PM EST PANORAMIC RADIOGRAPHIC IMAGE Routine 02/08/2024 11:30 AM EDT from Last 3 Months or Most Recently Relevant to Health Maintenance Results * Syphilis Screen (12/05/2024 2:20 PM EDT) Syphilis Screen Nonreactive Nonreactive [facility] 12/05/2024 2:20 PM EDT 12/05/2024 4:41 PM EDT us Generic External Data Provider LAB BLOOD ORDERAB LES Final Result [facility] [address] [place] [phone] [phone] * Hepatitis C Ab (12/05/2024 2:20 PM EDT) [facility] Hepatitis C Antibody Nonreactive Nonreactive [facility] Comment:Antibodies to HCV no t detected; does not exclude early acuteHCV infection. 12/05/2024 2:20 PM EDT 12/05/2024 4:41 PM EDT us Generic External Data Provider LAB BLOOD ORDERAB LES Final Result [facility] [address] [place] [phone] * Hepatitis B surface antigen, EIA (12/05/2024 2:20 PM EDT) [facility] Hepatitis B Surface Ag Negative Negative [facility] 12/05/2024 2:20 PM EDT 12/05/2024 4:41 PM EDT Generic External Data Provider LAB BLOOD ORDERAB LES Final Result Performing Organization Address City/[facility]/ZIP Co de Phone Number [facility] [address] [place] [phone] * HIV-1/2 Antigen and Antibodies, Fourth Generation, with Reflexes (12/05/2024 2:20 PM EDT) [facility] HIV AB/AG Nonreactive Nonreactive [facility] Comment:HIV-1 p24 Ag and/or HIV-1/HIV-2 Ab not detected.A test result that is nonreactive does not exclude thepossibility of exposure to or infection with HIV-1 and/orHIV-2. Nonreactive results in this assay for individualswith prior exposure to HIV-1 and/or HIV-2 may be due toantigen and antibody levels that are below the limit ofdetection of this assay.The [email or web address] HIV Ag/Ab Combo assay result andsupplemental assay results should be interpreted inconjunction with the patient's clinical presentation,history and other laboratory results. If the results areinconsistent with clinical evidence, additional testing issuggested to confirm the result. 12/05/2024 2:20 PM EDT 12/05/2024 4:41 PM EDT Generic External Data Provider LAB BLOOD ORDERAB LES Final Result Performing Organization Address [facility] Co de Phone Number [facility] [address] [place] [phone] * (ABNORMAL) Bacterial Vaginosis (12/01/2024 1:46 PM EDT) Pathologist [facility] TRICHOMONAS VAGINALIS DETECTION BY PCR NOT DETECTED Not Detect [facility] BACTERIAL VAGINOSIS DETECTION BY PCR POSITIVE(A) Negative [facility] Comment:The BV organism targ ets of the Xpert Xpress MVP test can becommensal in women; Xpert Xpress MVP positive results forbacterial vaginosis should be considered in conjunction withother clinical and patient information to determine thedisease status. Organisms that are not detected by the XpertXpress MVP test have also been reported to be associatedwith BV and aerobic vaginitis.The Xpert Xpress MVP test performance has not been evaluatedin patients under the age of 14. MARIAH GROUP DETECTION BY PCR NOT DETECTED Not Detect [facility] Mariah glab krusei PCR NOT DETECTED Not Detect [facility] 12/01/2024 1:46 PM EDT 12/01/2024 3:19 PM EDT Generic External Data Provider LAB MICROBIOLOGY - GENERAL ORDERABLES Final Result Performing Organization Address [facility] Co de Phone Number [facility] [address] [place] [phone] * Chlamydia/N. Gonorrhoeae RNA, TMA, Urogenitial (12/01/2024 1:46 PM EDT) Pathologist [facility] CT PCR NOT DETECTED Not Detect. [facility] Comment:A not detected test result does not exclude the possibilityof infection because test results can be affected byimproper specimen collection, concurrent antibiotic therapy,or the number of organisms in the specimen which may bebelow the sensitivity of the test. As with many diagnostictests, results from the Xpert CT/NG assay should beinterpreted in conjunction with other laboratory andclinical data available to the clinician.Xpert CT/NG performance has not been evaluated in patientsless than 14 years of age. The assay should not be used forthe evaluationof suspected sexual abuse or for other medico-legalindications. Additional testing is recommended in anycircumstance when false positive or false negative resultscould lead to adverse medical, social or psychologicalconsequences. NG PCR NOT DETECTED Not Detect. [facility] Comment:A not detected test result does not exclude the possibilityof infection because test results can be affected byimproper specimen collection, concurrent antibiotic therapy,or the number of organisms in the specimen which may bebelow the sensitivity of the test. As with many diagnostictests, results from the Xpert CT/NG assay should beinterpreted in conjunction with other laboratory andclinical data available to the clinician.Xpert CT/NG performance has not been evaluated in patientsless than 14 years of age. The assay should not be used forthe evaluationof suspected sexual abuse or for other medico-legalindications. Additional testing is recommended in anycircumstance when false positive or false negative resultscould lead to adverse medical, social or psychologicalconsequences. 12/01/2024 1:46 PM EDT 12/01/2024 3:19 PM EDT us Generic External Data Provider LAB MICROBIOLOGY - GENERAL ORDERABLES Final Result [facility] [address] [place] [phone] * HPV DNA, Low/High Risk (07/01/2024 2:10 PM EST) HPV High Risk Negative Negative [facility] HPV Genotype 16 Negative Negative [facility] HPV Genotype 18 Negative Negative [facility] Comment:HPV testing performe d at [facility] (CLIA#[id number]), [address] [place] [phone].Testing for HPV was performed using the Andrew [...] ORDERAB LES Final Result Performing Organization Address City/State/[facility] Co de Phone Number [facility] [address] [place] [phone] * Pap Smear (07/01/2024 2:10 PM EST) 07/01/2024 2:10 PM EST 07/04/2024 8:20 AM EST Narrative [facility] - 07/09/2024 10:02 AM EST ----- ------- Name: Jackie Decker Age/Sex: 28/F : 1995 Unit#: [id number] Attend Dr: Brandyn Molina MD Re07/01/24 Status: DEP REF Location: [facility] Disch: ----- ------- SPEC : [id number] RECD: 07/04/24 STATUS: [facility]ER [place] NUM: [id number] ROSSANA: 07/01/[address] [facility] DR: Brandyn Molina MD ENTERED: 07/04/24 SP TYPE: Pap Smr OTHR DR: KADE MARSHALL NP ORDERED: Pap Smear Interpretation Satisfactory for evaluation. Negative for intraepithelial lesion or malignancy. Coccobacilli consistent with shift in vaginal obed. HPV High Risk: Negative HPV Genotyping 16: Negative HPV Genotyping 18: Negative Clinical Information LMP: Mirena Previous PAP test: Unknown date/findings Material Received ThinPrep-Cervical Copies To: KADE MARSHALL NP [address] [place] [address] Brandyn Molina MD [facility] [address] [facility] [address] [place] [address] ----- ------- Signed (signature on file) JIMMY James (ASCP) 07/09/24 1002 ----- ------- END OF REPORT us Generic External Data Provider LAB CYTOLOGY MARCIAHolden GARCIA Final Result [facility] [address] [place], [place] [phone] from Last 3 Months or Most Recently Relevant to Health Maintenance Insurance [place] [facility] MEDICAID STAND ADULT Care Teams News Anchor Relationship Specialty Start Date End Date Kade Marshall ANP [address] [facility] [place] [address] PCP - General Family Medicine 11/16/19
--- OUTSIDE RECORDS SUMMARY | 2025-02-10 12:26 | XMS_ITS | Encounter Summary ---
Author Organization [employer] Address [address] [facility] 7t [place] [address] Care Team Providers Care National Park Tour Guide Name Role Phone Saloni Rodríguez ZE Primary Care Provider [phone] Encounter Details Date Type Department Care Team (Latest Contact Info) Description 02/09/2025 Travel Social History Tobacco Use Types Packs/Day Years [...] AM EDT documented as of this encounter Plan of Treatment Not on file documented as of this encounter Visit Diagnoses Not on filedocumented in this encounter Additional Health Concerns Assessment Noted Time PHQ-9 Depression Total Score: 7 12/10/19 24 12:13 PM EDT documented as of this encounter Care Teams National Park Tour Guide Relationship Specialty Start Date End Date Saloni Rodríguez ANP [address] [place] [phone] PCP - General Family Medicine 11/16/19 documented as of this encounter
--- OUTSIDE RECORDS SUMMARY | 2025-02-10 12:26 | XMS_ITS | Encounter Summary ---
Author Organization [email or web address] Address [address] [facility] 7t [place] [address] Care Team Providers Care Remote Sensing Research Scientist Name Role Phone Anne Saloni KUNZ Primary Care Provider [phone] Reason for Visit * Reason Onset Date Comments appt request my chart 06/20/2024 Encounter Details Date Type Department Care Team ([facility] st Contact Info) Description 06/20/2024 Telephone [facility] ADULT DENTAL [address] [place] [address] Ancelmo Rivera DDS [address] [place] [address] appt request my chart Social History Tobacco [...] documented in this encounter Plan of Treatment Not on file documented as of this encounter Visit Diagnoses Not on filedocumented in this encounter Additional Health Concerns Assessment Noted Time PHQ-9 Depression Total Score: 7 12/10/19 24 12:13 PM EDT documented as of this encounter Care Teams Remote Sensing Research Scientist Relationship Specialty Start Date End Date Saloni Rodríguez ANP [address] [place] [phone] PCP - General Family Medicine 11/16/19 documented as of this encounter
--- OUTSIDE RECORDS SUMMARY | 2025-02-10 12:26 | XMS_ITS | Encounter Summary ---
Author Organization [employer] Address [address] [facility] 7t [place] [address] Care Team Providers Care Nickel Plater Name Role Phone Saloni Rodríguez Primary Care Provider [phone] Reason for Visit * Reason Onset Date Comments Nurse Triage 11/16/2023 Encounter Details Date Type Department Care Team ([facility] st Contact Info) Description 11/16/2023 Telephone [facility] MEDICINE [address] [place] [address] Saloni Rodríguez ANP [address] [place] [address] Nurse Triage Social History Tobacco Use Types [...] office. Pt is advised to come to [facility] to be seen by provider. Hours given, open till 8pm this evening and 830am - 800pm / Thu. Pt reports will come to the [facility] in the next 2 days. Ptis advised to try ice to knee or heat. Keep leg elevated when resting and try to decrease activityfor a day or so. Pt agrees with [...] on filedocumented in this encounter Care Teams Nickel Plater Relationship Specialty Start Date End Date Saloni Rodríguez ANP [address] [place] [phone] PCP - General Family Medicine 11/16/19 documented as of this encounter
--- OUTSIDE RECORDS SUMMARY | 2025-02-10 12:26 | XMS_ITS | Encounter Summary ---
Author Organization [employer] Address [address] [facility] 7t [place] [address] Care Team Providers Care Reimbursement Auditor Name Role Phone Saloni Rodríguez Primary Care Provider [phone] Reason for Visit * Reason Onset Date Comments chart prep 02/09/2025 Encounter Details Date Type Department Care Team ([facility] Contact Info) Description 02/09/2025 Telephone [facility] MEDICINE [address] [place] [address] Saloni Rodríguez ANP [address] [place] [address] chart prep Social History Tobacco Use Types Packs/Day Years [...] encounter Miscellaneous Notes * Telephone Encounter - Ramona Castanon MA - 02/09/2025 8:42 AM EDT Chart Prep Labs: done Images: done Referrals: not applicable Vaccines due: Covid, Flu, and PCV20 Screenings: not applicable Overdue care gaps: SDOH, PHQ-9, ALFONSO-7, Oral health screening, and Disability screen documented in this encounter Plan of Treatment Not on file documented as of this encounter Visit Diagnoses Not on filedocumented in this encounter Additional Health Concerns Assessment Noted Time PHQ-9 Depression Total Score: 7 12/10/19 24 12:13 PM EDT documented as of this encounter Care Teams Reimbursement Auditor Relationship Specialty Start Date End Date Saloni Rodríguez ANP [address] [place] [address] PCP - General Family Medicine 11/16/19 documented as of this encounter
--- OUTSIDE RECORDS SUMMARY | 2025-02-10 12:26 | XMS_ITS | Encounter Summary ---
Author Organization [employer] Address [address] [facility] 7t [place] [address] Care Team Providers Care Regional Director Of Finance Name Role Phone Saloni Rodríguez ZE Primary Care Provider [phone] Encounter Details Date Type Department Care Team (Latest Contact Info) Description 02/10/2025 Travel Social History Tobacco Use Types Packs/Day [...] AM EDT documented as of this encounter Functional Status * Over the [...] 12:15 PM EDT Ramona Castanon MA * Thoughts that you would be better off or hurting yourself in some way Answer Date of Assessment Author Not at all 02/10/2025 12:15 PM EDT Ramona Castanon MA * Patient Health Questionnaire-9 Score Answer Date of Assessment Author 5 02/10/2025 12:15 PM EDT Ramona Castanon MA * How difficult have these problems made it for you to do your work, take care of things at home, or get along with other people? Answer Date of Assessment Author Not difficult at all 02/10/2025 12:15 PM EDT Ramona Gould MA * Over the last [...] Total Score 5 02/10/2025 12:16 PM EDT Raomna Castanon MA documented as of this encounter Plan of Treatment Not on file documented as of this encounter Visit Diagnoses Not on filedocumented in this encounter Additional Health Concerns Assessment Noted Time PHQ-9 Depression Total Score: 5 02/11/20 25 12:15 PM EDT documented as of this encounter Care Teams Regional Director Of Finance Relationship Specialty Start Date End Date Saloni Rodríguez ANP [address] [place] [address] PCP - General Family Medicine 11/16/19 documented as of this encounter
--- OUTSIDE RECORDS SUMMARY | 2025-02-10 12:26 | XMS_ITS | Encounter Summary ---
Author Organization [employer] Address [address] [facility] 7t [place] [address] Care Team Providers Care Marina Porter Name Role Phone Saloni Rodríguez Primary Care Provider [phone] Reason for Visit * Reason Onset Date Comments Appointment Request 02/03/2025 Encounter Details Date Type Department Care Team ([facility] Contact Info) Description 02/03/2025 Telephone [facility] MEDICINE [address] [place], [place] [phone] Saloni Rodríguez ANP [address] [place] [address] Appointment Request Social History Tobacco Use Types Packs/Day Years [...] Telephone Encounter - Ramona Castanon MA - 02/06/2025 4:02 PM EDT Spoke with patient an schedule for 04/12/25 @ 11:30 * Telephone Encounter - Michelle Valdivia - 02/03/2025 10:03 AM EDT Tc from pt requesting to schedule apt to check for diabetes and thyroid . Contact pt at [phone] documented in this encounter Plan of Treatment Not on file documented as of this encounter Visit Diagnoses Not on filedocumented in this encounter Additional Health Concerns Assessment Noted Time PHQ-9 Depression Total Score: 7 12/10/19 24 12:13 PM EDT documented as of this encounter Care Teams Marina Porter Relationship Specialty Start Date End Date Saloni Rodríguez ANP [address] [place] [phone] PCP - General Family Medicine 11/16/19 documented as of this encounter
[2025-02-10 13:35] LABS: MANUAL DIFF FLAG NO
[2025-02-10 14:04] LABS: Hematocrit 38.6 % (37.0-47.0); Hemoglobin 12.8 g/dl (12.0-16.0); Imm Gran Abs Auto 0.02 X10*3/uL (0.00-0.03); Imm Gran Pct Auto 0.3 % (0.0-0.4); Lymphocytes Absolute Auto 2.4 X10*3/uL (1.2-4.9); Mean Corpuscular HGB Conc 33.2 g/dl (31.0-35.0); Mean Corpuscular Hemoglobin 29.2 pg (27.0-33.0); Mean Corpuscular Volume 87.9 fL (80.0-98.0); NRBC Abs Auto 0.000 X10*3/uL (0.0-0.012); NRBC Pct Auto 0.0 /100WBC (0.0-0.2); Platelet Count 347 X10*3/uL (160-400); Red Blood Count 4.39 X10*6/uL (4.20-5.50); White Blood Count 7.5 X10*3/uL (4.8-10.8)
[2025-02-10 14:18] LABS: Iron 68 mcg/dL (30-160); Percent Iron Saturation 23 % (15-50); Total Iron Binding Capacity 292 mcg/dL (228-428); Unsaturated Iron Binding 224 ug/dL
== END 2025-02-10 12:12 | disposition home or self-care (01) ==
LOC: HO.HHCL 12:11
PROVIDERS: PCP Nurse Practitioner Primary Care; Visit Provider Nurse Practitioner Primary Care
DX: R63.5 Abnormal weight gain (principal); R53.83 Other fatigue
CPT/HCPCS: 36415; 83540; 84443; 85025

== ENCOUNTER 2025-03-29 10:05 | Outpatient (AMB) | payer MEDICAID, SELFPAY ==
--- OUTSIDE RECORDS SUMMARY | 2025-03-15 12:00 | XMS_ITS | Encounter Summary ---
Author Organization [employer] Address [address] [facility] [address] [place] [address] Care Team Providers Care Recruitment Consultant Name Role Phone Anne Saloni KUNZ Primary Care Provider [phone] Reason for Visit * Reason Comments Dental Pain Pt came in as an gaby rgency with pain for the pass month all over her left side. Panorex taken Encounter Details Date Type Department Care Team (Late st Contact Info) Description 03/15/2025 1:00 PM EDT Office Visit [facility] ADULT DENTAL [address] [place] [address] Padma Rivera DDS [address], [place] [phone] Dental abscess (Primary Dx); Retained dental root; Pain, dental Social History Tobacco Use Types Packs/Day Years [...] got money to buy more: Never True 02/10/2025 Within the past 12 months,th e food you bought just didn't last and you didn't have enough money to get more: Never True Transportation Answer Date Recorded In the past 12 months, has l ack of transportation kept you from medical appts, meetings, work or from getting things needed for daily living? No 03/23/2024 Utilities Answer Date Recorded In the past 12 months, has t he electric, gas, oil or water company threatened to shut off services in your home? Yes 02/10/2025 Depression Answer Date Recorded Patient Health Questionnaire-2 [...] Sign Reading Time Taken Comments Blood Pressure 120/74 03/15/2025 1:09 PM EDT Pulse 68 03/15/2025 1:09 PM EDT Temperature - - Respiratory Rate - - Oxygen Saturation - - Inhaled Oxygen Concentration - - Weight - - Height - - Body Mass Index - - documented in this encounter Progress Notes * Padma Rivera DDS - 03/15/2025 1:00 PM EDT Dental procedures in this visit D0140 - LIMITED ORAL EVALUATION - PROBLEM FOCUSED (Completed) Service provider: Padma Rivera DDS Billing provider: Padma Rivera DDS D0330 - PANORAMIC RADIOGRAPHIC IMAGE (Completed) Service provider: Padma Rivera DDS Billing provider: Padma Rivera DDS D9450 - CASE PRESENTATION, DETAILED AND EXTENSIVE TREATMENT PLANNING (Completed) Service provider: Padma Rivera DDS Billing provider: Padma Rivera DDS Patient ID: Jackie Decker is a 29 y.o. female. Time Out: Timeout Date: 03/15/25, Timeout Time: 1303 (emergency. panorex taken) Location: [facility] Tooth: Maxilla, Mandible, #13, #14, #15, #16, and #17 Procedure: X-rays and Emergency Verified the above with patient, housing assistant property manager, and provider. Confirmed via patient's chart, intraorally and by radiographs. Machine Gunner: not applicable Chief Complaint Patient presents with Dental Pain Pt came in as an emergency with pain for the pass month all over her left side. Panorex taken Medical Hx: Vitals: Blood pressure 120/74, pulse 68. Medical History[1] Medications: Encounter Medications[2] Subjective: Pain: intermittent Duration: >5 weeks Objective: Tooth: #13, #14, #15, #16, and #17 Radiographs Taken: Panoramic Radiographic Findings: Decay, Periapical Radiolucency, and Root Tip Clinical Findings: Multiple teeth carious, root tip # 16 partial bony impacted # 17 Swelling: Extraoral swelling, Tenderness, and Intraoral swelling Endo Testing: No Perio: Erythematous and edematous gingival regions Other Findings: Pt wanting extractions with deep sedation only. Overdue NILS / Hygiene Diagnosis: Caries, dental abscess Assessment/Plan: EOE X rays Referred to [facility] Prescriptions: Sent to [facility] on file Pt tolerated procedure well, all questions answered. Dismissed in good condition. NV: External referral Eyeletter: Judith Wade Dentist: Padma Rivera DDS On 03.24.25 @ 1:44 pm Received a request from [facility] for a second course of antibiotics and analgesics, since the referralplace stooped accepting Insurance . New option was facilitated with another order sent to [facility] onfile . [1] Past Medical History: Diagnosis Date Acute serous otitis media 10/04/2018 Anxiety Asthma Chronic motor tic disorder 12/08/2022 Depression 12/07/2023 Mild intermittent reactive airway disease without complication 09/07/2023 Relapsing remitting multiple sclerosis 06/23/2017 [2] Outpatient Encounter Medications as of 03/15/2025 Medication Sig Dispense Refill albuterol 108 (90 Base) MCG/ACT inhaler INHALE 2 PUFFS BY MOUTH EVERY 6 HOURS NEEDED FOR WHEEZING 18 g 1 fexofenadine (Tracy) 180 MG tablet Take 1 tablet (180 mg) by mouth if needed each day (Allergies). 90 tablet 2 triamcinolone (Kenalog) 0.1 % cream Apply topically 2 times daily. 30 g 0 Juleber 0.15-30 MG-MCG tablet Take 1 tablet by mouth Once per day. naproxen (Naprosyn) 500 MG tablet TAKE 1 TABLET BY MOUTH TWICE DAILY IN THE MORNING AND AT BEDTIME NEEDED FOR MILD PAIN (Patient not taking: Reported on 03/15/2025) 40 tablet 1 No facility-administered encounter medications on file as of 03/15/2025. documented in this encounter Miscellaneous Notes * Addendum Note - Padma Rivera DDS - 03/15/2025 1:00 PM EDTAddended by: PADMA RIVERA on: 03/24/2025 01:45 PM Modules accepted: Orders documented in this encounter Plan of Treatment Upcoming Encounters Date Type Department Care Team (Late st Contact Info) Description 04/12/2025 4:00 PM EST Office Visit [facility] MEDICINE [address] [place] [address] Saloni Rodríguez ANP [address] [place] [address] Scheduled Orders Name Type Priority Associated Diagnoses Orde r Schedule 13 13 EXTRACTION, ERUPTED TOOTH OR EXPOSED ROOT (ELEVATION/FORCEPS REMOVAL) Dental Routine [address] arting 03/15/2025 14 14 EXTRACTION, ERUPTED TOOTH OR EXPOSED ROOT (ELEVATION/FORCEPS REMOVAL) Dental Routine [address] arting 03/15/2025 15 15 EXTRACTION, ERUPTED TOOTH OR EXPOSED ROOT (ELEVATION/FORCEPS REMOVAL) Dental Routine [address] arting 03/15/2025 16 16 EXTRACTION, ERUPTED TOOTH OR EXPOSED ROOT (ELEVATION/FORCEPS REMOVAL) Dental Routine [address] arting 03/15/2025 17 17 EXTRACTION, ERUPTED TOOTH OR EXPOSED ROOT (ELEVATION/FORCEPS REMOVAL) Dental Routine [address] arting 03/15/2025 documented as of this encounter Procedures Procedure Name Priority Date/Time Associated Diagnosis Comments PANORAMIC RADIOGRAPHIC IMAGE Routine 03/15/2025 1:00 PM EDT LIMITED ORAL EVALUATION - PROBLEM FOCUSED Routine 03/15/2025 1:00 PM EDT CASE PRESENTATION, DETAILED AND EXTENSIVE TREATMENT PLANNING Routine 03/15/2025 1:00 PM EDT documented in this encounter Visit Diagnoses Diagnosis Dental abscess- Primary Periapical abscess without sinus Retained dental root Pain, dental documented in this encounter Additional Health Concerns Assessment Noted Time PHQ-9 Depression Total Score: 5 02/11/20 25 12:15 PM EDT documented as of this encounter Care Teams Recruitment Consultant Relationship Specialty Start Date End Date Saloni Rodríguez ANP [address] [place] [phone] PCP - General Family Medicine 11/16/19 documented as of this encounter
[2025-03-29 10:12] VITALS: BP 116/80; BMI 38.7
--- NOTE | 2025-03-29 10:12 | A.OFFVIS_ITS ---
Vital Signs 03/29/25 10:12 Height 5 ft 1 in Weight 205 lb BMI 38.7 BP 116/80 Intake Visit Reasons: medication follow up Ski Tow Operator Required: No Information Interpreted: non-clinical & clinical Accompanied by: Self / Same As Patient Allergies glatiramer (copolymer 1) (Copaxone) Allergy (Unknown, Verified 03/29/25 10:14) anaphylaxis No Known Allergies (No Known Allergies*) Allergy (Verified 03/29/25 10:14) pollen Allergy (Unknown, Uncoded 03/29/25 10:14) snnezing Is last menstrual period known: Yes Last menstrual period: 03/07/25 HPI Comments Details: Presenting for control pills follow-up with no complaints, periods are regular and light with no issues. [facility] Medical History Asthma H/O bipolar disorder History of anxiety Multiple sclerosis Family History Maternal Uncle Pancreatic cancer Social History Alcohol intake: never Patient Tobacco Use Status: Never used Tobacco Substance Use Type: Marijuana Sexual orientation: Straight/Heterosexual Gender identity: Female Female Reproductive History Menstrual Age of Menarche: 10 Duration of menses: 3-5 days Date of last menstrual period: 03/07/25 Review of Systems Const All systems reviewed & are unremarkable except as noted in HPI and below Reports as per HPI and Reports no additional complaints GI Reports no additional complaints Reports no additional complaints Physical Exam Vital Signs: Last Vital Signs BP 116/80 03/29/25 10:12 BMI result Body Mass Index 38.7 Assessment & Plan Assessment & Plan (1) Contraceptive management: Code(s): Z30.9 - Encounter for contraceptive management, unspecified Category: Medical Plan: control pill prescription refill sent to the patient's pharmacy. All questions answered, the patient verbalized understanding Medications: Refilled desogestrel-ethinyl estradiol 0.15-0.03 mg (Apri) 1 tab PO DAILY 28 tabs 12RF 28 days Coding Level of Care Code Est Pt Level 3 (56072) Diagnoses Contraceptive management Z30.9
--- OUTSIDE RECORDS SUMMARY | 2025-03-29 11:35 | XMS_ITS | Clinical Summary ---
Author Organization [employer] Address [address] [facility] [address] [place] [address] Care Team Providers Care Disability Counselor Name Role Phone Kade Marshall ZE Primary Care Provider [phone] Allergies Active Allergy Reactions Criticality Noted Date Comments Glatiramer Acetate Unknown 02/20/2023 Dust Mite Extract 12/08/2022 Other reaction(s): nasal congestion Medications * This document contains information received from the source organization and may not represent a complete record from that organization. naproxen (Naprosyn) 500 MG tablet TAKE 1 TABLET BY MOUTH TWICE DAILY IN THE MORNING AND AT BEDTIME NEEDED FOR MILD PAIN 40 tablet 1 4 Active Additional Information Patient not taking.Reported on 03/15/2025 albuterol 108 (90 Base) MCG/ACT inhalerIndicatio ns:Mild intermittent reactive airway disease without complication INHALE 2 PUFFS BY MOUTH EVERY 6 HOURS NEEDED FOR WHEEZING 18 g 1 5 Active Juleber 0.15-30 MG-MCG tablet Take 1 tablet by mouth Once per day. 5 Active fexofenadine (Tracy) 180 MG tabletIndication s:Non-seasonal allergic rhinitis, unspecified trigger Take 1 tablet (180 mg) by mouth if needed each day (Allergies). 90 tablet 2 5 Active triamcinolone (Kenalog) 0.1 % creamIndications :Rash Apply topically 2 times daily. 30 g 5 Active acetaminophen (Tylenol 8 Hour) 650 MG ER tablet Take 1 tablet (650 mg) by mouth every 8 (eight) hours if needed for mild pain. Do not crush, chew, or split. 30 tablet 5 Active ibuprofen 600 MG tablet Take 1 tablet (600 mg) by mouth 3 times daily. 30 tablet 5 Active acetaminophen (Tylenol 8 Hour) 650 MG ER tablet Take 1 tablet (650 mg) by mouth every 8 (eight) hours if needed for mild pain. Do not crush, chew, or split. 30 tablet 5 Active ibuprofen 600 MG tablet Take 1 tablet (600 mg) by mouth 3 times daily. 30 tablet 5 Active amoxicillin (Amoxil) 500 MG capsule Take 1 capsule (500 mg) by mouth every 8 (eight) hours for 7 days. 21 capsule 5 025 Active amoxicillin (Amoxil) 500 MG capsule Take 1 capsule (500 mg) by mouth every 8 (eight) hours for 7 days. 21 capsule 5 025 Active Problems Problem Noted Date Diagnosed Date Dental abscess 03/15/2025 Pain, dental 03/15/2025 Retained dental root 02/08/2024 Depression 12/07/2023 Assessment [...] intervention , Patient to reach out to [facility] team as needed, Patient to engage in [...] intervention , Patient to reach out to [facility] team as needed, Patient to engage in [...] log of sx -advised RTC or contact CARDIAC TECHNOLOGIST if sx worsen Chronic diarrhea 09/14/2023 Assessment [...] Encounters Date Type Department Care Team Description 03/24/2025 Telephone [facility] ADULT DENTAL [address] [place] [address] Bolano Antibiotics 03/15/2025 1:00 PM EDT Office Visit [facility] ADULT DENTAL [address] [place] [address] Ancelmo Rivera DDS Dental abscess (Primary Dx); Retained dental root; Pain, dental 02/24/2025 1:15 PM EDT Office Visit [facility] OPTOMETRY [address] [place] [address] Noe, Sonya, OD Myopia of both eyes (Primary Dx) 02/10/2025 11:30 AM EDT Office Visit [facility] MEDICINE [address] [place] [phone] Kade Marshall ANP Fatigue, unspecified type (Primary Dx); Weight gain; Rash; Non-seasonal allergic rhinitis, unspecified trigger; Mild intermittent asthma without complication 02/10/2025 Results Follow-Up [address] [address] Kade Marshall ANP TSH W/Reflex to FT4, CBC auto differential, Iron And Total Iron Binding Capacity 02/10/2025 Travel 02/09/2025 Travel 02/09/[address] [address] Kade Marshall ANP chart prep 02/03/[address] [address] Kade Marshall ANP Appointment Request 01/06/[address] [address] Kade Marshall ANP chart prep 01/02/2025 Travel from Last 3 Months Immunizations Immunization Administration Dates Next Due DTaP 02/08/1998, 5,10/07/1994,03/18,01/03/1994 HPV, Quadrivalent 12/13/2007,02/04/2007,12/05/19 07 Hep B, Adolescent or Pediatric 10/07/1994,1993,1993 Hib (HbOC) 04/21/1995, 5,03/18/1994,01/03 IPV 02/08/1998, 5,03/18/1994,01/03 Influenza, seasonal, [...] Pulse 68 03/15/2025 1:09 PM EDT Temperature 36.3 C (97.4 F) 02/10/2025 11:32 AM EDT Respiratory Rate 20 02/10/2025 11:32 AM EDT Oxygen Saturation 98% 04/01/2024 2:04 PM EST Inhaled Oxygen Concentration - - Weight 99.3 kg (219 lb) 02/10/2025 11:32 AM EDT Height 154.9 cm (5' 1 ) 02/10/2025 11:32 AM EDT Body Mass Index 41.38 02/10/2025 11:32 AM EDT Plan of Treatment Upcoming Encounters Date Type Department Care Team (Late st Contact Info) Description 04/12/2025 4:00 PM EST Office Visit [facility] MEDIC[facility] [address] [place] [address] Kade Marshall, ANP [address] [place] [address] Health Maintenance Due Date Last Done Comments Dental Oral Exam 1993 Dental Prophylaxis 1993 Dental X-Ray: Bitewings 1993 Family Planning (PISQ) 2008 COVID-19 Vaccine ( season) 2025 Influenza Vaccine (#1) 2025 04/01/2024 SDOH Screening 03/23/2025 03/23/2024 Alcohol/Substance Use Screening 04/01/2025 04/01/2024 Cervical Cancer Screening 07/01/2025 Pap Smear 07/01/2025 07/01/2024, 08/0 07/2022, 02/01/2022 Depression Screening 02/10/2026 02/10/2025, 02/11/20 25 Disability Screening 02/10/2026 02/10/2025 Tobacco Screening 03/15/2026 03/15/2025 Dental X-Ray: Full Mouth 03/16/2028 03/15/2025, 01/23 HPV/Cotest 07/01/2029 07/01/2024, 08/0 07/2022, 02/01/2022 DTaP/Tdap/Td [...] Procedure Name Priority Date/Time Associated Diagnosis Comments CASE PRESENTATION, DETAILED AND EXTENSIVE TREATMENT PLANNING Routine 03/15/2025 1:00 PM EDT PANORAMIC RADIOGRAPHIC IMAGE Routine 03/15/2025 1:00 PM EDT LIMITED ORAL EVALUATION - PROBLEM FOCUSED Routine 03/15/2025 1:00 PM EDT IRON AND TOTAL IRON BINDING CAPACITY Routine 02/10/2025 12:24 PM EDT Weight gain CBC WITH AUTO DIFFERENTIAL Routine 02/10/2025 12:24 PM EDT Fatigue, unspecified type Weight gain TSH W/REFLEX TO FT4 Routine 02/10/2025 1 2:24 PM EDT Weight gain HEPATITIS C ANTIBODY Routine 12/05/2024 2:20 PM EDT HIV 1/2 ANTIGEN/ANTIBODY, FOURTH GENERATION W/RFL Routine 12/05/2024 2:20 PM EDT HPV DNA, LOW/HIGH RISK Routine 07/01/2024 2:10 PM EST PAP SMEAR Routine 07/01/2024 2:10 PM EST from Last 3 Months or Most Recently Relevant to Health Maintenance Results * TSH W/Reflex to FT4 (02/10/2025 12:24 PM EDT) TSH reflex Free T4 1.54 0.32 - 4.0 uIU/mL [facility] Blood Venous blood specimen / Unknown 02/10/2025 12:24 PM EDT 02/10/2025 1:27 PM EDT us [facility] LAB BLOOD ORDERABLES Final Resul t [facility] [address] [place] [phone] * (ABNORMAL) CBC auto differential (02/10/2025 12:24 PM EDT) White Blood Count 7.5 4.8 - 10.8 X10*3/uL [facility] Red Blood Count 4.39 4.20 - 5.50 X10*6/uL [facility] Hemoglobin 12.8 12.0 - 16.0 g/dl [facility] Hematocrit 38.6 37.0 - 47.0 % [facility] Mean Corpuscular Volume 87.9 80.0 - 98.0 fL [facility] Mean Corpuscular Hemoglobin 29.2 27.0 - 33.0 pg [facility] Mean Corpuscular HGB Conc 33.2 31.0 - 35.0 g/dl [facility] Red Cell Distribution Width 12.2 11.0 - 16.0 % [facility] Platelet Count 347 160 - 400 X10*3/uL [facility] Mean Platelet Volume 9.8 9.4 - 12.3 fL [facility] Neutrophils Percent Auto 55.6 45 - 73 % [facility] Imm Gran Pct Auto 0.3 0.0 - 0.4 % [facility] Lymphocytes Percent Auto 31.4 20 - 40 % [facility] Monocytes Percent Auto 6.4 2 - 11 % [facility] Eosinophils Percent Auto 5.6(H) 0 - 4 % [facility] Basophils Percent Auto 0.7 0 - 2 % [facility] NRBC Pct Auto 0.0 0.0 - 0.2 /100WBC [facility] Neutrophils Absolute Auto 4.2 2.0 - 8.3 x10*3/uL [facility] Imm Gran Abs Auto 0.02 0.00 - 0.03 X10*3/uL [facility] Lymphocytes Absolute Auto 2.4 1.2 - 4.9 X10*3/uL [facility] Monocytes Absolute Auto 0.5 0.1 - 1.2 X10*3/uL [facility] Eosinophils Absolute Auto 0.4 0.0 - 0.4 X10*3/uL [facility] Basophils Absolute Auto 0.1 0.0 - 0.2 X10*3/uL [facility] NRBC Abs Auto 0.000 0.0 - 0.012 X10*3/uL [facility] Blood Venous blood specimen / Unknown 02/10/2025 12:24 PM EDT 02/10/2025 1:27 PM EDT Kade Marshall ANP LAB BLOOD ORDERABLES Final Resul t Performing Organization Address [facility] Co de Phone Number [facility] [address] [place] [phone] * Iron And Total Iron Binding Capacity (02/10/2025 12:24 PM EDT) Iron 68 30 - 160 mcg/dL [facility] Total Iron Binding Capacity 292 228 - 428 mcg/dL [facility] Percent Iron Saturation 23 15 - 50 % [facility] Unsaturated Iron Binding 224 ug/dL [facility] Blood Venous blood specimen / Unknown 02/10/2025 12:24 PM EDT 02/10/2025 1:27 PM EDT Kade Marshall ANP LAB BLOOD ORDERABLES Final Resul t Performing Organization Address [facility] Number [facility] [address] [place] [phone] * Hepatitis C Ab (12/05/2024 2:20 PM EDT) Hepatitis C Antibody Nonreactive Nonreactive [facility] Comment:Antibodies to HCV no t detected; does not exclude early acuteHCV infection. 12/05/2024 2:20 PM EDT 12/05/2024 4:41 PM EDT Generic External Data Provider LAB BLOOD ORDERAB LES Final Result Performing Organization Address [facility] Co de Phone Number [facility] [address] [place] [phone] * HIV-1/2 Antigen and Antibodies, Fourth Generation, with Reflexes (12/05/2024 2:20 PM EDT) HIV AB/AG Nonreactive Nonreactive [facility] Comment:HIV-1 p24 Ag and/or HIV-1/HIV-2 Ab not detected.A test result that is nonreactive does not exclude thepossibility of exposure to or infection with HIV-1 and/orHIV-2. Nonreactive results in this assay for individualswith prior exposure to HIV-1 and/or HIV-2 may be due toantigen and antibody levels that are below the limit ofdetection of this assay.The [employer] [place] HIV Ag/Ab Combo assay result andsupplemental assay results should be interpreted inconjunction with the patient's clinical presentation,history and other laboratory results. If the results areinconsistent with clinical evidence, additional testing issuggested to confirm the result. 12/05/2024 2:20 PM EDT 12/05/2024 4:41 PM EDT us Generic External Data Provider LAB BLOOD ORDERAB LES Final Result [facility] [address] [place] [phone] * HPV DNA, Low/High Risk (07/01/2024 2:10 PM EST) HPV High Risk Negative Negative [facility] HPV Genotype 16 Negative Negative [facility] HPV Genotype 18 Negative Negative [facility] Comment:HPV testing performe d at [facility] (CLIA#[id number]), [address] [place] [address].Testing for HPV was performed using the Andrew [...] Provider LAB BLOOD ORDERAB LES Final Result [facility] [address] [place] [phone] * Pap Smear (07/01/2024 2:10 PM EST) 07/01/2024 2:10 PM EST 07/04/2024 8:20 AM EST Narrative [facility] - 07/09/2024 10:02 AM EST ----- ------- Name: Jackie Decker Age/Sex: 28/F : 1995 Unit#: [id number] Attend Dr: Brandyn Moilna MD Re07/01/24 Status: DEP REF Location: [facility] Disch: ----- ------- SPEC : [id number] RECD: 07/04/24 STATUS: CHAND[place]ER [place] NUM: [id number] ROSSANA: 07/01/[address] [facility] [address]: Brandyn Molina MD ENTERED: 07/04/24 SP TYPE: Pap Smr OTHR DR: KADE MARSHALL NP ORDERED: Pap Smear Interpretation Satisfactory for evaluation. Negative for intraepithelial lesion or malignancy. Coccobacilli consistent with shift in vaginal obed. HPV High Risk: Negative HPV Genotyping 16: Negative HPV Genotyping 18: Negative Clinical Information LMP: Mirconstantino Previous PAP test: Unknown date/findings Material Received ThinPrep-Cervical Copies To: KADE MARSHALL NP [facility] [address] [place] [address] Brandyn Molina MD [facility] [address] [place], [place] [phone] ----- ------- Signed (signature on file) JIMMY James (ASCP) 07/09/24 1002 ----- ------- END OF REPORT us Generic External Data Provider LAB CYTOLOGY KITTY GARCIA Final Result [facility] [address] [place], [place] [phone] from Last 3 Months or Most Recently Relevant to Health Maintenance Insurance [place] [facility] MEDICAID STAND ADULT Care Teams Disability Counselor Relationship Specialty Start Date End Date Kade Marshall ANP [address] [place] [address] PCP - General Family Medicine 11/16/19
--- OUTSIDE RECORDS SUMMARY | 2025-03-29 11:35 | XMS_ITS | Encounter Summary ---
Author Organization [employer] Address [address] [facility] 7t [place] [address] Care Team Providers Care Gm/Svp Global Publisher Business Name Role Phone Saloni Rodríguez Primary Care Provider [phone] Encounter Details Date Type Department Care Team ([facility] st Contact Info) Description 02/10/2025 Results Follow-Up [facility] MEDICINE [address] [place] [address] Saloni Rodríguez ANP [address] [place] [address] TSH W/Reflex to FT4, CBC auto differential, Iron And Total Iron Binding Capacity Social History Tobacco Use Types Packs/Day Years [...] awful might happen 0 02/10/2025 12:16 PM OSCART Ramona Castanon MA ALFONSO-7 Total Score 5 02/10/2025 12:16 PM EDT Ramona Castanon MA documented as of this encounter Miscellaneous Notes * Result Encounter Note - ZE Pelaez - 02/10/2025 3:35 PM EDT Hi Jackie, Nothing yet on the labs to explain weight gain. Thyroid was normal. Please work on nutrition and increased exercise and let's check back in 6-8 weeks and see how it's going. Please call our office if you have any questions. Por favor llame a la oficina si tiene preguntas. Take care, Cu??Saloni lyn DEVELOPMENT WRITER documented in this encounter Plan of Treatment Upcoming Encounters Date Type Department Care Team (Late st Contact Info) Description 04/12/2025 4:00 PM EST Office Visit [facility] MEDICINE [address] [place] [id number] Saloni Rodríguez ANP [address] [place] [address] documented as of this encounter Visit Diagnoses Not on filedocumented in this encounter Additional Health Concerns Assessment Noted Time PHQ-9 Depression Total Score: 5 02/11/20 25 12:15 PM EDT documented as of this encounter Care Teams Gm/Svp Global Publisher Business Relationship Specialty Start Date End Date Saloni Rodríguez ANP [address] [place] [id number] PCP - General Family Medicine 11/16/19 documented as of this encounter
--- OUTSIDE RECORDS SUMMARY | 2025-03-29 11:35 | XMS_ITS | Encounter Summary ---
Author Organization [employer] Address [address] [facility] [address] [place] [address] Care Team Providers Care Automotive Finance Manager Name Role Phone Anne Saloni KUNZ Primary Care Provider [phone] Reason for Visit * Reason Onset Date Comments appt request my chart 06/20/2024 Encounter Details Date Type Department Care Team ([facility] st Contact Info) Description 06/20/2024 Telephone [facility] ADULT DENTAL [address] [place] [address] Anclemo Rivera DDS [address] [place] [address] appt request my chart Social History Tobacco [...] Description 04/12/2025 4:00 PM EST Office Visit [facility] MEDICINE [address] [place] [address] Saloni Rodríguez ANP [address] [place] [address] documented as of this encounter Visit Diagnoses Not on filedocumented in this encounter Additional Health Concerns Assessment Noted Time PHQ-9 Depression Total Score: 7 12/10/19 24 12:13 PM EDT documented as of this encounter Care Teams Automotive Finance Manager Relationship Specialty Start Date End Date Saloni Rodríguez ANP [address] [place] [address] PCP - General Family Medicine 11/16/19 documented as of this encounter
--- OUTSIDE RECORDS SUMMARY | 2025-03-29 11:35 | XMS_ITS | Encounter Summary ---
Author Organization [employer] Address [address] [facility] 7t [place] [address] Care Team Providers Care Senior Sales Representative Name Role Phone Anne Saloni KUNZ Primary Care Provider [phone] Reason for Visit * Reason Onset Date Comments Dr. Rivera Antibiotics 03/24/2025 Encounter Details Date Type Department Care Team ([facility] st Contact Info) Description 03/24/[address] [facility] ADULT DENTAL [address] [place] [address] Ancelmo Rivera DDS [address] [place] [address] Dr. Rivera Antibiotics Social History Tobacco Use Types Packs/Day Years [...] * Telephone Encounter - Marcy Parada - 03/24/2025 12:18 PM EDT Message for Dr. Rivera Patient called in stating that she is having difficult time finding an Oral Surgeon that accepts [employer] insurance. She did receive a website from where she can search however many of the are not accepting new patients. She is concerned that her infection is going to come back and is looking to see if an antibiotic script can be sent to the pharmacy in case she has pain again DR documented in this encounter Plan of Treatment Upcoming Encounters Date Type Department Care Team ([facility] st Contact Info) Description 04/12/2025 4:00 PM EST Office Visit [facility] MEDICINE [address] [place] [address] Saloni Rodríguez ANP [address] [place] [address] documented as of this encounter Visit Diagnoses Not on filedocumented in this encounter Additional Health Concerns Assessment Noted Time PHQ-9 Depression Total Score: 5 02/11/20 25 12:15 PM EDT documented as of this encounter Care Teams Senior Sales Representative Relationship Specialty Start Date End Date Saloni Rodríguez ANP [address] [place] [id number] PCP - General Family Medicine 11/16/19 documented as of this encounter
--- OUTSIDE RECORDS SUMMARY | 2025-03-29 11:35 | XMS_ITS | Encounter Summary ---
Author Organization [employer] Address [address] [facility] [address] [place] [address] Care Team Providers Care Alcohol Rubber Name Role Phone Saloni Rodríguez Primary Care Provider Reason for Visit * Reason Onset Date Comments Nurse Triage 11/16/2023 Encounter Details Date Type Department Care Team ([facility] st Contact Info) Description 11/16/2023 Telephone [facility] MEDICINE [address] [place] [address] Saloni Rodríguez ANP [address] [place] [address] Nurse Triage Social History Tobacco Use Types [...] office. Pt is advised to come to [facility] to be seen by provider. Hours given, open till 8pm this evening and 830am - 800pm / Thu. Pt reports will come to the [facility] in the next 2 days. Pt [...] Description 04/12/2025 4:00 PM EST Office Visit [facility] MEDICINE [address] [place] [address] Saloni Rodríguez ANP [address] [place] [address] documented as of this encounter Visit Diagnoses Not on filedocumented in this encounter Care Teams Alcohol Rubber Relationship Specialty Start Date End Date Saloni Rodríguez ANP [address] [place] [id number] PCP - General Family Medicine 11/16/19 documented as of this encounter
== END 2025-03-29 10:19 | disposition home or self-care (01) ==
LOC: HO.HWS 10:05
PROVIDERS: PCP Nurse Practitioner Primary Care; Visit Provider Obstetrics & Gynecology
DX: Z30.9 Encounter for contraceptive management, unspecified (principal)
CPT/HCPCS: 99213

== ENCOUNTER → 2025-03-29 10:05 | Outpatient (BNVA) | payer MEDICAID, SELFPAY | PROVIDERS: PCP Nurse Practitioner Primary Care; Visit Provider Obstetrics & Gynecology | DX: Z30.9 Encounter for contraceptive management, unspecified (principal) | CPT/HCPCS: 99212 ==